=== PATIENT | male | born 1955 | race Caucasian/White ===

== ENCOUNTER → 2017-02-07 | Outpatient (CLI) | payer BC ==
[~2017-02-07] MED LIST: GLAUCOMA EYE GTTS; LRT5 PO
--- NOTE | 2017-02-07 15:04 | DIAGNOSTIC IMAGING REPORT ---
L-SPINE MIN 4 VIEWS ROUTINE HISTORY: 61 years-old Male PAIN IN RIGHT LEG acute right lower extremity pain without reported trauma. COMPARISON: None available. TECHNIQUE: 5 views of the lumbar spine. FINDINGS: 5 nonrib-bearing lumbar type vertebral segments are present. There is no acute fracture or dislocation identified. Multilevel endplate degenerative changes are noted with severe intervertebral disc space narrowing at L5-S1. There is lumbarization of S1. Multilevel facet arthropathy is noted, most pronounced in the lower lumbar levels, predominantly moderate. Moderate stool burden. IMPRESSION: 1. No acute lumbar spine fracture or subluxation. 2. Severe intervertebral disc space narrowing with moderate facet arthropathy at L5-S1. The above report was generated using voice recognition software. It may contain grammatical, syntax or spelling errors. Electronically signed by: Isauro Pugh M.D. 02/07/2017 3:03 PM Dictated Date/Time: 02/07/2017 3:01 PM
== END | disposition home or self-care (01) ==
LOC: C.RAD1850 14:32
PROVIDERS: ATTEND Family Medicine
DX: M79.604 Pain in right leg (principal)

== ENCOUNTER → 2017-10-17 | Outpatient (CLI) | payer BC | END | disposition home or self-care (01) | LOC: C.RDSM 15:35 | PROVIDERS: ATTEND Podiatrist | DX: M79.671 Pain in right foot (principal); M79.672 Pain in left foot ==

== ENCOUNTER 2023-05-18 15:46 | Observation (INO) ==
[2023-05-18] MEDS ORDERED: ONDANSETRON INJ 2 MG/ML 2 ML VIAL IV STA ×2 (16:12→18:09)
--- NOTE | 2023-05-18 16:14 | ED Triage Note ---
Date of Service May 18, 2023 Provider in Triage Author: Tanya Diaz History of Present Illness This patient was briefly evaluated while in triage. An abbreviated physical exam was performed. This patient is a 67-year-old Male who presents to the ED for evaluation of right flank pain with radiation into groin. Physical Exam CONSTITUTIONAL: in no acute pain or distress, resting comfortably SKIN: pink, warm, dry CARDIAC: regular rate and rhythm RESPIRATORY: in no respiratory distress, lungs clear to auscultation ABDOMEN: RLQ TTP MSK: 5/5 strength throughout NEURO: no neuro deficits, alert and oriented x 3 Initial orders for labs and / or imaging were placed and patient was placed in the waiting area until a bed is available. Please see further documentation for the full ED course.
[2023-05-18 17:28] LABS: Albumin Globulin Ratio 1.7 (0.9-2); Albumin Level 4.5 gm/dl (3.4-5.0); BUN Creatinine Ratio 19.3 (10-20); Bilirubin,Total 0.6 mg/dl (0.2-1.0); Calcium 9.8 mg/dl (8.6-10.3); Creatinine Clr Calc Pharmacy 95.6 ml/min; Est GFR (African American) 106.3 ml/min; Est GFR (Non-African American) 91.7 ml/min; Globulin 2.7 gm/dl (2.5-4.0); Potassium 3.8 mmol/L (3.5-5.1); Total Protein 7.2 gm/dl (6.0-8.3)
[2023-05-18 17:31] LABS: Basophils # (auto) 0.09 K/uL (0.00-0.20); Basophils % (auto) 0.7 %; Eosinophils # (auto) 0.25 K/uL (0.00-0.50); Hematocrit (blood only) 44.7 % (42.0-52.0); Hemoglobin 16.1 g/dl (14.0-18.0); Immature Granulocytes # (auto) 0.05 K/uL (0.01-0.20); Immature Granulocytes % (auto) 0.4 %; Lymphocytes # (auto) 3.72 K/uL (1.20-3.40); Lymphocytes % (auto) 29.9 %; Mean Corpuscular Hemoglobin 31.4 pg (25.0-34.0); Mean Corpuscular Volume 87.3 fL (80.0-100.0); Mean Platelet Volume 10.6 fL (9.4-12.4); Monocytes # (auto) 0.99 K/uL (0.11-0.59); Neutrophils # (auto) 7.34 K/uL (1.40-6.50); Platelet Count 238 K/uL (130-400); RDW Coefficient of Variation 12.4 % (11.5-14.5); RDW Standard Deviation 39.8 fL (36.4-46.3); Red Blood Count 5.12 M/uL (4.70-6.10); White Blood Count 12.44 K/ul (4.8-10.8)
[2023-05-18] MEDS ORDERED: MoRPHine SULFATE 4 MG/ML 1 ML CARP\\VIAL IV STA (18:09)
[2023-05-18] MEDS ORDERED: KETOROLAC TROMETHAMINE 15 MG/ML VIAL IV STA (18:09)
[2023-05-18] MEDS ORDERED: SODIUM CHLORIDE 0.9% 1,000 ML IV ONE (18:09)
--- NOTE | 2023-05-18 18:12 | Emergency Department Note ---
Impression & Plan Acute right flank pain, Hydronephrosis, Renal colic, Vomiting ED Provider Note NAME: COLTON GUTIERREZ AGE: 67 SEX: M : 1955 ARRIVES VIA: Walk-In INFORMANT: [Patient] ED PROVIDER(S): [Kehinde Chapin MD] CHIEF COMPLAINT: Abdominal pain HISTORY OF PRESENT ILLNESS: The patient is a 67-year-old male presents to the ER with about 3 hours of right-sided abdominal pain. The pain started in the right lower quadrant but now has moved to the right flank. He has had nausea and vomiting. No urinary complaints. No fever, chills, cough or congestion. The pain is colicky in nature. It is currently quite severe. No history of similar pain, no history of renal stones. PMHx/PSHx/Social Hx: See Below PHYSICAL EXAM: GENERAL: Patient is in moderate distress from pain. HEENT: No acute trauma, normocephalic atraumatic, mucous membranes moist, no nasal congestion. NECK: No stridor, no adenopathy, no meningismus, trachea is midline. LUNGS: Clear to auscultation bilaterally, no wheeze, no rhonchi, breath sounds equal. HEART: Without murmurs gallops or rubs, regular rate and rhythm. ABDOMEN: Soft, nontender, no peritonitis. EXTREMITIES: No cyanosis, full range of motion of all the joints without pain or difficulty. NEUROLOGIC: Oriented x 3, no acute motor or sensory deficits, no focal weakness. SKIN: No jaundice, no diaphoresis. Back: Right flank discomfort to percussion. DIFFERENTIAL DIAGNOSIS: Renal colic, appendicitis, hydronephrosis, diverticulitis, UTI or pyelonephritis, musculoskeletal pain, hernia, among others. EMERGENCY DEPARTMENT PROCEDURES: MEDICAL DECISION MAKING: There is a mild leukocytosis, this could be consistent with infection or just his pain and vomiting. There was a normal hemoglobin and platelet count. No renal failure or significant electrolyte abnormality. No concerning liver enzyme elevation. No evidence for pancreatitis. Urinalysis shows some hematuria, no findings of infection. Gastroccult of the vomitus was negative for blood. Abdominal and pelvis CT shows a right-sided proximal ureteral stone with hydronephrosis. On exam, the patient was quite uncomfortable. He was vomiting some reddish material. Patient received IV saline, 1 L. He was given oral Flomax. He was given IV Zofran, a second dose of IV Zofran was given. He received IV morphine for pain, IV Toradol for pain. He eventually received IV Dilaudid and then a second dose of IV Dilaudid. He was given IV Phenergan for nausea that was persisting. The patient has been here for over 4 hours. He has not improved to the point where he can be discharged. He will require a hospital stay for pain control, hydration, monitoring and a urology consult. I do think that the right ureteral stone is causing his symptoms. I spoke with the patient and case management, the on-call hospitalist was consulted. Prior/Outside records/notes reviewed: Imaging/x-ray results per my interpretation: Chronic Medical/Social conditions affecting care: Diabetes mellitus Care/Management discussed with: Case management, the on-call hospitalist. Level of care consideration(s): After review of the information above and other included data: --I believe the patient requires escalation of care to admission DISPOSITION: Admission with urology consult. Past Med/Surg History Medical History Tinea unguium Microalbuminuria Low back pain Glaucoma Surgical History H/O arthroscopy of shoulder S/P colonoscopy S/P skin biopsy S/P wisdom tooth extraction Family History Family/Other Skin cancer (melanoma) Hemochromatosis Social History Smoking Status: Never smoker Preferred Language: Welsh Feels Safe at Home: Yes Allergies Allergies Allergy/AdvReac Type Severity Reaction Status Date / Time No Known Allergies Allergy Mild NONE Verified 05/18/23 18:34 Home Meds Home Medications Medication Instructions Recorded Confirmed glucagon 1 mg solution for 1 mg subcut DIRECTED PRN 07/29/21 05/18/23 injection (Glucagon Emergency Kit) hypoglycemia insulin glargine 100 unit/mL (3 45 unit subcut QPM 07/29/21 05/18/23 mL) subcutaneous pen (Basaglar KwikPen U-100 Insulin) insulin regular human 100 unit/mL 1 sliding scale dose subcut 07/29/21 05/18/23 (3 mL) subcutaneous pen (Novolin R USEASDIRECTD FlexPen) timolol maleate 0.5 % eye drops 1 drp OPB DAILY 07/29/21 05/18/23 atorvastatin 10 mg tablet 10 mg PO DAILY 05/18/23 05/18/23 Results & Data (ED) Vital Signs Vital Signs - 24 hr 05/18/23 16:07 05/18/23 18:02 05/18/23 18:04 Temperature 36.7 C Temperature Source Temporal Artery Scan Pulse Rate 61 59 L Pulse Rate [Finger] 61 Pulse Rhythm [Finger] Regular Pulse Strength [Finger] Normal Respiratory Rate 20 18 Respiratory Effort / Characteristics Non-Labored Spontaneous Non-Labored Spontaneous Respiratory Depth Normal Normal Respiratory Pattern Regular Blood Pressure 177/96 H Blood Pressure [Right Arm] 176/94 H Blood Pressure Mean 123 Blood Pressure Mean [Right Arm] 121 Blood Pressure Position [Right Arm] Sitting Pulse Oximetry 97 98 Oxygen Delivery Method Room Air Room Air Oxygen Flow Rate Sepsis Recent Fever Within 48 Hours No Sepsis New/Unexplained Change in Mental Status No Sepsis Action Taken by Nursing No Action Required 05/18/23 18:58 05/18/23 20:46 Temperature Temperature Source Pulse Rate Pulse Rate [Finger] 67 67 Pulse Rhythm [Finger] Regular Regular Pulse Strength [Finger] Normal Normal Respiratory Rate 18 18 Respiratory Effort / Characteristics Non-Labored Spontaneous Non-Labored Spontaneous Respiratory Depth Normal Normal Respiratory Pattern Regular Blood Pressure Blood Pressure [Right Arm] 179/85 H 153/85 H Blood Pressure Mean Blood Pressure Mean [Right Arm] 116 107 Blood Pressure Position [Right Arm] Pulse Oximetry 98 99 Oxygen Delivery Method Room Air Nasal Cannula Oxygen Flow Rate 2 Sepsis Recent Fever Within 48 Hours Sepsis New/Unexplained Change in Mental Status Sepsis Action Taken by [facility] Medications Current Medication List: was personally reviewed by me Laboratory Data Attestation: I reviewed the patient's lab results. 05/18/23 16:56 05/18/23 16:56 Lab Results 05/18/23 05/18/23 05/18/23 Range/Units 16:56 18:20 18:29 WBC 12.44 H (4.8-10.8) K/ul RBC 5.12 (4.70-6.10) M/uL Hgb 16.1 (14.0-18.0) g/dl Hct 44.7 (42.0-52.0) % MCV 87.3 (80.0-100.0) fL MCH 31.4 (25.0-34.0) pg MCHC 36.0 (32.0-36.0) g/dL RDW Std Deviation 39.8 (36.4-46.3) fL RDW Coeff of Chloe 12.4 (11.5-14.5) % Plt Count 238 (130-400) K/uL MPV 10.6 (9.4-12.4) fL Immature Gran % (Auto) 0.4 % Neut % (Auto) 59.0 % Lymph % (Auto) 29.9 % Walker % (Auto) 8.0 % Eos % (Auto) 2.0 % Baso % (Auto) 0.7 % Neut # (Auto) 7.34 H (1.40-6.50) K/uL Lymph # (Auto) 3.72 H (1.20-3.40) K/uL Walker # (Auto) 0.99 H (0.11-0.59) K/uL Eos # (Auto) 0.25 (0.00-0.50) K/uL Baso # (Auto) 0.09 (0.00-0.20) K/uL Immature Gran # (Auto) 0.05 (0.01-0.20) K/uL Sodium 140 (136-145) mmol/L Potassium 3.8 (3.5-5.1) mmol/L Chloride 106 (98-107) mmol/L Carbon Dioxide 27 (21-32) mmol/L Anion Gap 7 (3-11) BUN 16 (6-23) mg/dl Creatinine 0.83 (0.6-1.4) mg/dl Est Cr Clr Drug Dosing 95.6 ml/min Est GFR ( Amer) 106.3 ml/min Est GFR (Non-Af Amer) 91.7 ml/min BUN/Creatinine Ratio 19.3 (10-20) Glucose 122 H (70-99(Fasting)) mg/dl Calcium 9.8 (8.6-10.3) mg/dl Total Bilirubin 0.6 (0.2-1.0) mg/dl AST 26 (13-39) U/L ALT 35 (7-52) U/L Alkaline Phosphatase 56 (34-104) U/L Total Protein 7.2 (6.0-8.3) gm/dl Albumin 4.5 (3.4-5.0) gm/dl Globulin 2.7 (2.5-4.0) gm/dl Albumin/Globulin Ratio 1.7 (0.9-2) Lipase 23 (11-82) U/L Urine Color Yellow Urine Appearance Clear (Clear) Urine pH 7.0 (4.5-7.5) Ur Specific [place] 1.015 (1.000-1.030) Urine Protein Negative (Negative) Urine Glucose (UA) Negative (Negative) Urine Ketones Negative (Negative) Urine Blood 2+ H (Negative) Urine Nitrite Negative (Negative) Urine Bilirubin Negative (Negative) Urine Urobilinogen Negative (Negative) Ur Leukocyte Esterase Negative (Negative) Urine WBC (Auto) 1-5 (0-5) /hpf Urine RBC (Auto) 0-4 (0-4) /hpf U Hyaline Cast (Auto) 1-5 (0-5) /lpf U Epithel Cells (Auto) 20-30 H (0-5) /lpf Urine Bacteria (Auto) Negative (Negative) Gastric Fluid pH 2 Gastric Occult Blood Negative (Negative) Administered Medications Lactated Ringer's (Lr) 1,000 mls @ 100 mls/hr IV .Q10H MATTHEW Stop: 05/19/23 16:59 Last Admin: 05/18/23 20:53 Dose: 100 mls/hr Documented By: AMY Discontinued Medications Hydromorphone HCl (Hydromorphone Inj 0.5 Mg/0.5 Ml Syr) 0.5 mg IV NOW STA Stop: 05/18/23 18:54 Last Admin: 05/18/23 18:57 Dose: 0.5 mg Documented By: AMY Hydromorphone HCl (Hydromorphone Inj 0.5 Mg/0.5 Ml Syr) 0.5 mg IV NOW STA Stop: 05/18/23 20:27 Last Admin: 05/18/23 20:43 Dose: 0.5 mg Documented By: AMY Sodium Chloride (Nss) 1,000 mls @ 999 mls/hr IV .Q1H1M ONE Stop: 05/18/23 19:09 Last Infusion: 05/18/23 19:39 Dose: Infused Documented By: Admin: 05/18/23 18:25 Dose: 999 mls/hr Documented By: KELLEY Promethazine HCl (Phenergan) 12.5 mg in 50.5 mls @ 202 mls/hr IV NOW STA Stop: 05/18/23 20:40 Last Admin: 05/18/23 20:44 Dose: 202 mls/hr Documented By: AMY Ketorolac Tromethamine (Ketorolac Tromethamine 15 Mg/Ml Vial) 15 mg IV NOW STA Stop: 05/18/23 18:10 Last Admin: 05/18/23 18:25 Dose: 15 mg Documented By: KELLEY Morphine Sulfate (Morphine Sulfate 4 Mg/Ml 1 Ml Carp\Vial) 4 mg IV NOW STA Stop: 05/18/23 18:10 Last Admin: 05/18/23 18:25 Dose: 4 mg Documented By: KELLEY Ondansetron HCl (Ondansetron Inj 2 Mg/Ml 2 Ml Vial) 4 mg IV NOW STA Stop: 05/18/23 16:13 Last Admin: 05/18/23 16:53 Dose: 4 mg Documented By: LAURA Ondansetron HCl (Ondansetron Inj 2 Mg/Ml 2 Ml Vial) 4 mg IV NOW STA Stop: 05/18/23 18:10 Last Admin: 05/18/23 18:25 Dose: 4 mg Documented By: KELLEY Tamsulosin HCl (Tamsulosin Hcl 0.4 Mg Cap) 0.4 mg PO NOW ONE Stop: 05/18/23 18:58 Last Admin: 05/18/23 19:02 Dose: 0.4 mg Documented By: AMY Imaging Data Radiologist's Impression: Abdomen/Pelvis CT 05/18/23 16:[address] WITHOUT CONTRAST CT DOSE: 1339.8 mGy.cm HISTORY: Right flank pain TECHNIQUE: Multiaxial CT images of the abdomen and pelvis were performed without contrast. A dose lowering technique was utilized adhering to the principles of ALARA. COMPARISON STUDY: None. FINDINGS: There are few subcentimeter nodules within the lung bases measuring 3 mm. No pneumoperitoneum. No pneumatosis. No acute fractures identified. Hepatic steatosis. The unenhanced gallbladder, pancreas, spleen, and adrenal glands are unremarkable. There is a punctate left renal stone. No right renal calculi. There is mild right perinephric edema. There is moderate hydronephrosis secondary to an obstructing 5 mm stone within the proximal right ureter on image 207. No retroperitoneal lymphadenopathy. Mild calcified plaque within the normal caliber abdominal aorta. Mild mesenteric panniculitis is noted. This is of doubtful clinical significance. No pelvic lymphadenopathy or pelvic free fluid. No bladder wall thickening. There is a small diverticulum in the anterior bladder. This may represent a urachal remnant. Suboptimal evaluation for bowel pathology due to the lack of intravenous and oral contrast. However, there is no definite bowel wall thickening or obstruction. Normal appendix. IMPRESSION: 1. A 5 mm obstructing stone within the proximal right ureter resulting in mild right hydronephrosis. 2. Left-sided nephrolithiasis. 3. No bowel wall thickening or obstruction. 4. Normal appendix. 5. A small anterior bladder diverticulum. This could represent a urachal remnant. 6. Hepatic steatosis. 7. A few subcentimeter nodules within the lung bases measuring up to 3 mm. Please refer to below summary of Fleischner criteria recommendations for follow- up of incidental CT nodules (Jaison Brannon, Guidelines for management of small pulmonary nodules detected on CT scans: A statement from the Fleischner Society, Radiology 237: [phone].) SOLID NODULES Solitary nodule size: <6 mm * Low risk patients: no follow-up needed * high risk patients: optional CT at 12 months Solitary nodule size: 6-8 mm * Low risk patients: follow-up at 6-12 months, then consider further follow-up at 18-24 months * high risk patients: initial follow-up CT at 6-12 months and then at 18-24 months if no change Solitary nodule size: >8 mm * either low or high risk patients - consider follow-up CT at 3 months, and/or CT-PET, and/or biopsy Multiple nodules size: <6 mm * Low risk patients: no routine follow-up * high risk patients: optional CT at 12 months Multiple nodules size: 6-8 mm * Low risk patients: follow-up at 3-6 months, then consider further follow-up at 18-24 months * high risk patients: follow-up at 3-6 months, then at 18-24 months if no change Multiple nodules size: >8 mm * Low risk patients: follow-up at 3-6 months, then consider further follow-up at 18-24 months * high risk patients: follow-up at 3-6 months, then at 18-24 months if no change Note: newly detected indeterminate nodule in persons 35 years of age or older. * Low risk patients: minimal or absent history of smoking and/or other known risk factors * high risk patients: history of smoking or of other known risk factors (e.g. first degree relative with lung cancer, or exposure to asbestos, radon, uranium) * if a nodule up to 8 mm is partly solid or is ground glass further follow-up is required after 24 months to exclude possible slow growing adenocarcinoma (JOSE) SUBSOLID NODULES Solitary pure ground-glass nodule * nodule size <6 mm - no CT follow-up required * nodule size >=6 mm - follow-up CT at 6-12 months, then every 2 years until 5 years Solitary part-solid nodule * nodule size <6 mm - no CT follow-up required * nodule size >=6 mm - follow-up CT at 3-6 months. If unchanged, and solid component remains <6 mm, then annual follow-up for 5 years Multiple subsolid nodules * nodule size <6 mm - follow-up CT at 3-6 months, consider further follow-up at 2 and 4 years if stable * nodule size >=6 mm - follow-up CT at 3-6 months, subsequent management based on the most suspicious nodule(s) ACT 112: Negative or not required by law. Electronically signed by: Vaibhav Gama M.D. 05/18/2023 6:27 PM Discharge Plan Visit Data Chief Complaint: Abdominal Pain Stated Complaint: ABD PAIN ED Provider: Kehinde Chapin Discharge Problem: Acute right flank pain, Hydronephrosis, Renal colic, Vomiting Patient Disposition: Admitted As Inpatient Condition: Fair Forms Stand Alone Forms: My [facility] Prescriptions Prescriptions: No Action Basaglar KwikPen U-100 Insulin 100 unit/mL (3 mL) insulin pen 45 unit subcut QPM Rx Instructions: use as directed subcut daily; Glucagon Emergency Kit (human) 1 mg recon soln 1 mg subcut DIRECTED PRN (Reason: hypoglycemia) Novolin R FlexPen 100 unit/mL (3 mL) insulin pen 1 sliding scale dose subcut USEASDIRECTD timolol maleate 0.5 % drops 1 drp OPB DAILY atorvastatin 10 mg tablet 10 mg PO DAILY Referrals Referrals: Colton Salas MD [Primary Care Provider] - Discharge Problem: Hydronephrosis Qualifiers: Hydronephrosis type: with renal calculous obstruction Qualified Code(s): N13.2 - Hydronephrosis with renal and ureteral calculous obstruction Vomiting Qualifiers: Vomiting type: unspecified Nausea presence: with nausea Qualified Code(s): R 11.2 - Nausea with vomiting, unspecified
--- NOTE | 2023-05-18 18:29 | CT Scan Report ---
ABDOMEN AND PELVIS CT WITHOUT CONTRAST CT DOSE: 1339.8 mGy.cm HISTORY: Right flank pain TECHNIQUE: Multiaxial CT images of the abdomen and pelvis were performed without contrast. A dose lo wering technique was utilized adhering to the principles of ALARA. COMPARISON STUDY: None. FINDINGS: There are few subcentimeter nodules within the lung bases measuring 3 mm. No pneumoperitone um. No pneumatosis. No acute fractures identified. Hepatic steatosis. The unenhanced gallbladder, swan creas, spleen, and adrenal glands are unremarkable. There is a punctate left renal stone. No right re nal calculi. There is mild right perinephric edema. There is moderate hydronephrosis secondary to an obstructing 5 mm stone within the proximal right ureter on image 207. No retroperitoneal lymphadenopa thy. Mild calcified plaque within the normal caliber abdominal aorta. Mild mesenteric panniculitis is noted. This is of doubtful clinical significance. No pelvic lymphadenopathy or pelvic free fluid. No bladder wall thickening. There is a small diverticulum in the anterior bladder. This may represent a urachal remnant. Suboptimal evaluation for bowel pathology due to the lack of intravenous and oral c ontrast. However, there is no definite bowel wall thickening or obstruction. Normal appendix. IMPRESSION: 1. A 5 mm obstructing stone within the proximal right ureter resulting in mild right hydronephrosis. 2. Left-sided nephrolithiasis. 3. No bowel wall thickening or obstruction. 4. Normal appendix. 5. A small anterior bladder diverticulum. This could represent a urachal remnant. 6. Hepatic steatosis. 7. A few subcentimeter nodules within the lung bases measuring up to 3 mm. Please refer to below summary of Fleischner criteria recommendations for follow-up of incidental CT n odules (Jaison Brannon, Guidelines for management of small pulmonary nodules detected on CT scans: A sta tement from the Fleischner Society, Radiology 237: [phone].) SOLID NODULES Solitary nodule size: <6 mm * Low risk patients: no follow-up needed * high risk patients: optional CT at 12 months Solitary nodule size: 6-8 mm * Low risk patients: follow-up at 6-12 months, then consider further follow-up at 18-24 months * high risk patients: initial follow-up CT at 6-12 months and then at 18-24 months if no change Solitary nodule size: >8 mm * either low or high risk patients - consider follow-up CT at 3 months, and/or CT-PET, and/or biopsy Multiple nodules size: <6 mm * Low risk patients: no routine follow-up * high risk patients: optional CT at 12 months Multiple nodules size: 6-8 mm * Low risk patients: follow-up at 3-6 months, then consider further follow-up at 18-24 months * high risk patients: follow-up at 3-6 months, then at 18-24 months if no change Multiple nodules size: >8 mm * Low risk patients: follow-up at 3-6 months, then consider further follow-up at 18-24 months * high risk patients: follow-up at 3-6 months, then at 18-24 months if no change Note: newly detected indeterminate nodule in persons 35 years of age or older. * Low risk patients: minimal or absent history of smoking and/or other known risk factors * high risk patients: history of smoking or of other known risk factors (e.g. first degree relative with lung cancer, or exposure to asbestos, radon, uranium) * if a nodule up to 8 mm is partly solid or is ground glass further follow-up is required after 24 m onths to exclude possible slow growing adenocarcinoma (JOSE) SUBSOLID NODULES Solitary pure ground-glass nodule * nodule size <6 mm - no CT follow-up required * nodule size >=6 mm - follow-up CT at 6-12 months, then every 2 years until 5 years Solitary part-solid nodule * nodule size <6 mm - no CT follow-up required * nodule size >=6 mm - follow-up CT at 3-6 months. If unchanged, and solid component remains <6 mm, then annual follow-up for 5 years Multiple subsolid nodules * nodule size <6 mm - follow-up CT at 3-6 months, consider further follow-up at 2 and 4 years if sta ble * nodule size >=6 mm - follow-up CT at 3-6 months, subsequent management based on the most suspiciou s nodule(s) ACT 112: Negative or not required by law. Electronically signed by: Vaibhav Gama M.D. 05/18/2023 6:27 PM
[2023-05-18 18:30] LABS: Gastric Occult Blood Negative (Negative); pH Gastric Fluid 2
[2023-05-18 18:44] LABS: Appearance Urine Clear (Clear); Bacteria Urine Automated Negative (Negative); Bilirubin Urine Negative (Negative); Blood Urine 2+ (Negative); Color Urine Yellow; Epithelial Cell Urine Auto 20-30 /lpf (0-5); Glucose Urine UA Negative (Negative); Ketones Urine Negative (Negative); Leukocyte Esterase Urine Negative (Negative); Nitrite Urine Negative (Negative); Protein Urine Negative (Negative); RBC Urine Automated 0-4 /hpf (0-4); Specific Gravity Urine 1.015 (1.000-1.030); Urobilinogen Urine Negative (Negative)
[2023-05-18] MEDS ORDERED: HYDROmorphone INJ 0.5 MG/0.5 ML SYR IV STA ×2 (18:53→20:26)
[2023-05-18] MEDS ORDERED: TAMSULOSIN HCL 0.4 MG CAP PO ONE (18:57)
[2023-05-18] MEDS ORDERED: PROMETHAZINE 12.5 MG/50.5 ML BAG IV STA (20:26)
--- NOTE | 2023-05-18 20:38 | History & Physical Report ---
Date of Service May 18, 2023 Assessment & Plan (1) Right nephrolithiasis: Plan: -Admit to med/tele on pulse oximetry -Currently hemodynamically stable, stable on RA when awake but drops into the high 80's when sleeping -CT of the abd/pelvis shows A 5 mm obstructing stone within the proximal right ureter resulting in mild right hydronephrosis -Renal function is stable, UA is non-infectious, negative BL CVA tenderness -Was given a total of 4 mg IV morphine and 1mg of Dilaudid prior to admission -Patient is currently fatigued due to multiple doses of narcotics in the ED; will hold additional narcotics for now until he is more awake -Start with PRN Tylenol for now -S/P one dose of flomax in the ED, will continue daily for now -Urine strainer ordered -Clear liquids until midnight then NPO in case of stent placement tomorrow -S/P 1L NSS in the ED, will give 1L LR overnight as he will be NPO -Urology consult placed -Hold chemical DVT PPX for now in case of stent placement tomorrow, BL CHARLOTTE's for now -Am CBC, BMP, Mag (2) Hypoxia: Plan: -Patient became hypoxic with Spo2 in the high 80's after receiving his second dose of IV dilaudid in the ED -Patient denies a hx of BEN -Likely due to oversedation as he is narcotic naive -No respiratory distress, lungs are CTA -Will obtain CXR to monitor for aspiration -PRN O2 to keep SpO2 at or above 95% -Incentive spirometry -PRN IV narcan for oversedation/respiratory depression (3) Vomiting: Plan: -Multiple episodes of nausea and vomiting on arrival -S/P one dose of zofran and Compazine in the ED -Nausea currently under control -Will continue with Prn zofran (4) Hydronephrosis: Plan: -Renal function stable -No signs of infection -Urology consult placed (5) Diabetes mellitus: Plan: -Will monitor BSG q6h as he will be NPO, goal is 110-140 -Normally takes 45 units HS, will adjust to 15 units BID for now to prevent hypoglycemia with NPO status at midnight -CF 50 q6h -Clears until midnight then NPO -Adjust regimen as needed Plan The patient was discussed wt Dr. Keating at the time of the admission History of Present Illness Chief Complaint: Right flank pain, abd pain, nausea Primary Care Provider: Colton Salas MD Colton is a 67 year old male with a PMH significant for DM, tremor, and chronic headaches who presented to the [facility] ED on 05/18 with complaints of right flank pain, abd pain, and nausea which began shortly after leaving work early this evening. He remained stable in the ED. Labs were significant for a leukocytosis of 12 with neutrophile predominance of 7.34, stable renal function, and UA without signs of infection. CT of the abd/pelvis wo con was read as "1. A 5 mm obstructing stone within the proximal right ureter resulting in mild right hydronephrosis. 2. Left-sided nephrolithiasis. 3. No bowel wall thickening or obstruction. 4. Normal appendix. 5. A small anterior bladder diverticulum. This could represent a urachal remnant. 6. Hepatic steatosis. 7. A few subcentimeter nodules within the lung bases measuring up to 3 mm.". Prior to admission the patient was given 1L NSS, 4 mg IV morphine, 15 mg IV toradol, 12.5 mg Compazine, 4 mg IV zofran, and 2 doses of 0.5 mg IV dilaudid. At the time of the admission the patient was sitting in bed in no acute distress with his sitting bedside, history was obtained from both. Prior to my arrival the patient's nurse placed him on 2L NC as his Spo2 fell to 88% on RA after receiving his last dose of Dilaudid. He states that he was in his normal state of health earlier today when leaving work. He was driving home when he started to develop acute onset of right flank/right lateral abd pain. He then had onset of diaphoresis and nausea. He pulled into the home depto parking lot but his symptoms persisted so he came to the ED. He denies a hx of previous kidney stones and denies recent urinary symptoms. He had multiple episodes of nausea and vomiting prior to and after ED arrival. His last episode appeared slightly red/purple. He states that he ate blueberries earlier in the day. His pain is currently well controlled. He is a full code and his would make medical decisions for him if he cannot make them himself. Please refer to Dr. Saeed's attestation for any changes to the treatment plan Allergies Allergy/AdvReac Type Severity Reaction Status Date / Time No Known Allergies Allergy Mild NONE Verified 05/18/23 18:34 Home Medications Medication Instructions Recorded Confirmed Type glucagon 1 mg solution for 1 mg subcut DIRECTED PRN 07/29/21 05/18/23 History injection (Glucagon Emergency Kit) hypoglycemia insulin glargine 100 unit/mL (3 45 unit subcut QPM 07/29/21 05/18/23 History mL) subcutaneous pen (Basaglar KwikPen U-100 Insulin) insulin regular human 100 unit/mL 1 sliding scale dose subcut 07/29/21 05/18/23 History (3 mL) subcutaneous pen (Novolin R USEASDIRECTD FlexPen) timolol maleate 0.5 % eye drops 1 drp OPB DAILY 07/29/21 05/18/23 History atorvastatin 10 mg tablet 10 mg PO DAILY 05/18/23 05/18/23 History Past Med/Surg History Medical History Tinea unguium Microalbuminuria Low back pain Glaucoma Surgical History H/O arthroscopy of shoulder S/P colonoscopy S/P skin biopsy S/P wisdom tooth extraction Family History Family/Other Skin cancer (melanoma) Hemochromatosis Social History Smoking Status: Never smoker Preferred Language: Slovenian Feels Safe at Home: Yes Physical Exam Physical Exam: Physical Exam: General: In no acute distress, fatigued but non-toxic appearing, stated age, well-nourished, HEENT: Normocephalic, atraumatic, no scleral icterus, pupils around round, symmetrical, and reactive to light, moist mucus membranes, trachea midline, no thyromegaly Chest/Pulm: No respiratory distress, symmetrical chest expansion, clear breath sounds throughout Cardiac: RRR, no murmurs noted Abdomen: Negative for ascites and bruising, normoactive bowel sounds, soft, mild tenderness in the RLQ without rebound tenderness : Negative CVA tenderness BL Musculoskeletal: Symmetrical and without signs of acute trauma, upper and lower extremities with full ROM, no atrophy, spasticity, or flaccidity Extremities: Radial, dorsalis pedis, and posterior tibial pulses are intact and symmetrical, no edema noted in the BL LE's Skin: Warm, dry, no rashes , lesions, or scars noted Neuro: Alert and oriented to person, place, month, year, and president, no focal defects, no tremors noted Psych: No acute distress, calm and cooperative during the exam Results & Data Results & Data Vital Signs (Past 12 Hours) Vital Signs Temp Pulse Pulse Resp BP BP Pulse Ox 05/18/23 18:58 67 18 179/85 H 98 05/18/23 18:04 59 L 05/18/23 18:02 61 18 176/94 H 98 05/18/23 16:07 36.7 C 61 20 177/96 H 97 O2 Del Method 05/18/23 18:58 Room Air 05/18/23 18:04 05/18/23 18:02 Room Air 05/18/23 16:07 Room Air Laboratory Results Abnormal lab results 05/18/23 05/18/23 Range/Units 16:56 18:29 WBC 12.44 H (4.8-10.8) K/ul Neut # (Auto) 7.34 H (1.40-6.50) K/uL Lymph # (Auto) 3.72 H (1.20-3.40) K/uL Rich # (Auto) 0.99 H (0.11-0.59) K/uL Glucose 122 H (70-99(Fasting)) mg/dl Urine Blood 2+ H (Negative) U Epithel Cells (Auto) 20-30 H (0-5) /lpf Diagnostic Findings Abdomen/Pelvis CT 05/18/23 16:[address] WITHOUT CONTRAST CT DOSE: 1339.8 mGy.cm HISTORY: Right flank pain TECHNIQUE: Multiaxial CT images of the abdomen and pelvis were performed without contrast. A dose lowering technique was utilized adhering to the principles of ALARA. COMPARISON STUDY: None. FINDINGS: There are few subcentimeter nodules within the lung bases measuring 3 mm. No pneumoperitoneum. No pneumatosis. No acute fractures identified. Hepatic steatosis. The unenhanced gallbladder, pancreas, spleen, and adrenal glands are unremarkable. There is a punctate left renal stone. No right renal calculi. There is mild right perinephric edema. There is moderate hydronephrosis secondary to an obstructing 5 mm stone within the proximal right ureter on image 207. No retroperitoneal lymphadenopathy. Mild calcified plaque within the normal caliber abdominal aorta. Mild mesenteric panniculitis is noted. This is of doubtful clinical significance. No pelvic lymphadenopathy or pelvic free fluid. No bladder wall thickening. There is a small diverticulum in the anterior bladder. This may represent a urachal remnant. Suboptimal evaluation for bowel pathology due to the lack of intravenous and oral contrast. However, there is no definite bowel wall thickening or obstruction. Normal appendix. IMPRESSION: 1. A 5 mm obstructing stone within the proximal right ureter resulting in mild right hydronephrosis. 2. Left-sided nephrolithiasis. 3. No bowel wall thickening or obstruction. 4. Normal appendix. 5. A small anterior bladder diverticulum. This could represent a urachal remnant. 6. Hepatic steatosis. 7. A few subcentimeter nodules within the lung bases measuring up to 3 mm. Please refer to below summary of Fleischner criteria recommendations for follow- up of incidental CT nodules (Jaison Brannon, Guidelines for management of small pulmonary nodules detected on CT scans: A statement from the Fleischner Society, Radiology 237: [phone].) SOLID NODULES Solitary nodule size: <6 mm * Low risk patients: no follow-up needed * high risk patients: optional CT at 12 months Solitary nodule size: 6-8 mm * Low risk patients: follow-up at 6-12 months, then consider further follow-up at 18-24 months * high risk patients: initial follow-up CT at 6-12 months and then at 18-24 months if no change Solitary nodule size: >8 mm * either low or high risk patients - consider follow-up CT at 3 months, and/or CT-PET, and/or biopsy Multiple nodules size: <6 mm * Low risk patients: no routine follow-up * high risk patients: optional CT at 12 months Multiple nodules size: 6-8 mm * Low risk patients: follow-up at 3-6 months, then consider further follow-up at 18-24 months * high risk patients: follow-up at 3-6 months, then at 18-24 months if no change Multiple nodules size: >8 mm * Low risk patients: follow-up at 3-6 months, then consider further follow-up at 18-24 months * high risk patients: follow-up at 3-6 months, then at 18-24 months if no change Note: newly detected indeterminate nodule in persons 35 years of age or older. * Low risk patients: minimal or absent history of smoking and/or other known risk factors * high risk patients: history of smoking or of other known risk factors (e.g. first degree relative with lung cancer, or exposure to asbestos, radon, uranium) * if a nodule up to 8 mm is partly solid or is ground glass further follow-up is required after 24 months to exclude possible slow growing adenocarcinoma (JOSE) SUBSOLID NODULES Solitary pure ground-glass nodule * nodule size <6 mm - no CT follow-up required * nodule size >=6 mm - follow-up CT at 6-12 months, then every 2 years until 5 years Solitary part-solid nodule * nodule size <6 mm - no CT follow-up required * nodule size >=6 mm - follow-up CT at 3-6 months. If unchanged, and solid component remains <6 mm, then annual follow-up for 5 years Multiple subsolid nodules * nodule size <6 mm - follow-up CT at 3-6 months, consider further follow-up at 2 and 4 years if stable * nodule size >=6 mm - follow-up CT at 3-6 months, subsequent management based on the most suspicious nodule(s) ACT 112: Negative or not required by law. Electronically signed by: Vaibhav Gama M.D. 05/18/2023 6:27 PM Code Status & VTE Plan Code Status Full code VTE Prophylaxis Plan VTE Prophylaxis will be ordered: Yes Supervising Physician Co-Signing Physician Notes I have personally seen, evaluated and examined the patient. I have also personally discussed the management of the patient with the ANITA and I agree with the exam findings documented in the history and physical examination and the documented assessment and plan unless otherwise stated below. HEENT: Normocephalic atraumatic pupils are equal round and reactive to light bilaterally. No scleral icterus no conjunctival injection external auditory canals are patent septum is in the midline nose is without discharge oral mucosa is pink and moist without lesion. NECK: Supple no rigidity no lymphadenopathy no thyromegaly no carotid bruits no JVD no masses. HEART: Regular rate and rhythm I do not appreciate any ectopy or rub. No murmur. LUNGS: Clear to auscultation bilaterally and anteriorly with no evidence of adventitious sounds/wheezes rales or rhonchi. ABDOMEN: Soft nontender, no rebound, no peritoneal signs, positive bowel sounds, no appreciable organomegaly. EXTREMITIES: Intact, no peripheral cyanosis, clubbing or edema. Strength is 5 out of 5 in extremities x4, no pathological reflexes. NEUROLOGICAL: He is mildly somnolent I had to wake him up once during the exam but he is alert and oriented times 3 when awake and cranial nerves II through XII are grossly intact with no focal deficit elicited upon examination. No tremor. Assessment/plan: As described above. N.p.o. after midnight Flomax IV fluids strain urine consult urology for possible stent placement pending clinical course. At this time we will hold off on IV antibiotic therapy given the fact the patient has no fever his urine does not reflect infection at this time however low threshold if the patient does spike a fever or leukocytosis worsens to begin empiric antibiotics therapy PG Care Time/CCT Total # of Minutes Spent Total Time Spent with Patient: Total time spent is greater than 50% in coordination of care (as documented) at patient's floor/unit and/or counseling patient: Coding [place] [address] INT INP/OBS CARE 3/75MIN Patient Type Established Medical Decision Making Moderate Complexity Diagnoses Right nephrolithiasis N20.0 Hypoxia R09.02 Vomiting R11.2 Nausea presence: with nausea Vomiting type: unspecified Hydronephrosis N13.2 Hydronephrosis type: with renal calculous obstruction Diabetes mellitus E11.9 (3) Vomiting Nausea presence: with nausea Vomiting type: unspecified Qualified Code(s): R11.2 - Nausea with vomiting, unspecified (4) Hydronephrosis Hydronephrosis type: with renal calculous obstruction Qualified Code(s): N13.2 - Hydronephrosis with renal and ureteral calculous obstruction
[2023-05-18] MEDS ORDERED: NALOXONE HCL 0.4 MG/1 ML VIAL/CARP IV PRN (20:46)
[2023-05-18] MEDS: LACTATED RINGER'S 1,000 ML IV SCH (20:53)
[2023-05-18] MEDS ORDERED: GLUCOSE 40% GEL 15 GM TUBE PO PRN (21:06)
[2023-05-18] MEDS ORDERED: CARBOHYDRATES FOR HYPOGLYCEMIA PO PRN (21:06)
[2023-05-18] MEDS ORDERED: GLUCAGON FOR INJ 1 MG VIAL SQ PRN (21:06)
[2023-05-18] MEDS ORDERED: GLUCOSE 10 TAB/TUBE PO PRN (21:06)
[2023-05-18] MEDS ORDERED: DEXTROSE 50% 50 ML SYRINGE IV PRN (21:06)
[2023-05-18] MEDS ORDERED: ACETAMINOPHEN 325 MG TAB PO PRN (21:08)
[2023-05-18] MEDS: INSULIN ASPART PER UNIT CHARGE SC SCH (21:55)
--- NOTE | 2023-05-18 21:58 | XRay Report ---
SINGLE VIEW CHEST CLINICAL HISTORY: Hypoxia FINDINGS: 2 AP, portable, upright chest radiographs are compared to study dated 01/28/2022. Correlatio n is made with today's abdominal CT. The cardiomediastinal silhouette is unremarkable noting atherosc lerotic calcification of the thoracic aorta. There is bibasilar atelectasis. No airspace consolidatio n or large pleural effusion is identified. No pneumothorax is seen. The skeletal structures appear os teopenic. The bony thorax is grossly intact. IMPRESSION: Bibasilar atelectasis with no active disease in the chest. ACT 112: Negative or not required by law. Electronically signed by: Kehinde Beverly M.D. 05/18/2023 9:56 PM
--- NOTE | 2023-05-19 02:03 | Urology Consultation ---
Date of Consultation May 19, 2023 Assessment & Plan (1) Renal colic: The patient has been admitted on the hospitalist service. From urology perspective we recommend the following: Provide analgesics Provide antiemetics Wrote IV fluid for hydration Strain all urine Would recommend keeping the patient n.p.o. for the present time. The patient be evaluated by Dr. Limon later this morning and a determination will be made if patient will require any cystoscopic intervention. At the present time the patient is afebrile and hemodynamically stable. He does not have evidence of acute kidney injury and his pain is well-controlled and therefore I do not feel an emergent urologic procedure is required at this time. Attending note: Patient independently assessed, examined, interviewed, and evaluated. Agree with note as above. Patient's vitals and labs were all reviewed. Pertine nt values in the HPI and plan section. Imaging was reviewed interpreted by myself. Agree with read. Vitals were reviewed. Discussed findings extensively with patient and family. Reviewed with nurse practitioner as well as consulting physicians/team. Patient's complicated medical and surgical history was reviewed and summarized above. Patient's surgical, medical, social, and family history were all reviewed with pertinent values as above. Discussed patient's current diagnosis as well as concerns and issues. Reviewed different options moving forward. Discussed potential risks and benefits as well as possible options and concerns. Reviewed potential surgical options and interventions. Discussed potential issues and concerns related to intervention. Risk and benefits were discussed extensively with patient and any available family. Discussed potential risks related to anesthesia. Discussed risks of bleeding infection and injury. Patient is currently afebrile. Is having some mild hypertension. No considerable tachycardia. He is oxygenating 91% on room air. Patient's labs have all been reviewed. White count is 12.29. Creatinine 1.0. No considerable ALEJANDRA or major change. Hemoglobin is stable. At 15.1. Patient's imaging was reviewed interpreted by myself. Has obstructing stone proximately 5 mm in the proximal ureter. Patient had considerable relief of pain overnight but this morning developed increasing pain and discomfort. Did discuss the stone moves down the ureter may be getting held up at the crossing of the iliac vessels or possibly down in the UVJ region. Discussed on passage rates. Discussed concerns and issues. Discussed potential problems and concerns. Discussed options for conservative measure and maximum expulsion medical therapy and symptom controlled. Discussed ESWL. Discussed Ureteroscopy with extraction and/or laser lithotripsy. Risks and benefits were discussed. Stone free rates were also discussed as well as possibility of multiple procedures. Ureteral stents were discussed as well as post-operative issues and pain management. All questions were answered. Patient is currently afebrile. He has been dealing with some considerable pain issues but has been coming and going. Does have medications on board for better control. Patient has never had a stone before. Does not have considerable family history. No considerable ALEJANDRA or significant signs of major obstruction. Discussed different options. Will plan for observation with maximum expulsion therapy and observation with supportive care. Will plan for IV hydration with medications for control of pain discomfort as well as to relax the ureter and to decrease discomfort and inflammation. If patient develops severe fevers or if considerable acute kidney injury or other major obstruction begins to occur or if pain becomes uncontrollable and severe may need to consider possible intervention. Patient is able to pass stone spontaneously should be sent for analysis. Will otherwise plan to continue to observe with plans for possible intervention if patient drastically worsens or if major issues develop. Patient's complicated medical and surgical history was reviewed and summarized above all imaging was reviewed interpreted by myself. Agree with the note as written by the ANITA. Will plan to continue to monitor. History of Present Illness Reason for Consultation: Nephrolithiasis Attending Physician: Quoc Keating, PhD, DO History of Present Illness Is a 67-year-old male who presented to the emergency department [facility] yesterday secondary to right-sided flank pain. The patient denies any fevers, shakes, or chills. He denies any dysuria or hematuria. He did have some associated nausea and vomiting. He does not report any modifying factors to his pain but notes that it originates in the right flank with some radiation to the front of his abdomen. He notes he has never had issues with kidney stones in the past. Since arrival to the hospital patient has had labs and imaging which independent reviewed. Patient had a CT scan of the abdomen pelvis which demonstrated a 5 mm obstructing kidney stone in the proximal right ureter resulting in hydronephrosis. There was some left-sided nephrolithiasis. Chest x-ray showed no evidence of pneumonia. Labs include a CBC her white blood cell count was elevated 12.4. Hemoglobin and hematocrit along with the platelet count were normal. Chemistry profile showed sodium and potassium along with the BUN and creatinine were normal. Urinalysis did show 2+ blood but was not indicative of infection. At the time of my interview the patient's pain had resolved and he was resting comfortably in bed. Allergies Allergy/AdvReac Type Severity Reaction Status Date / Time No Known Allergies Allergy Mild NONE Verified 05/18/23 18:34 Home Medications Medication Instructions Recorded Confirmed Type glucagon 1 mg solution for 1 mg subcut DIRECTED PRN 07/29/21 05/18/23 History injection (Glucagon Emergency Kit) hypoglycemia insulin glargine 100 unit/mL (3 45 unit subcut QPM 07/29/21 05/18/23 History mL) subcutaneous pen (Basaglar KwikPen U-100 Insulin) insulin regular human 100 unit/mL 1 sliding scale dose subcut 07/29/21 05/18/23 History (3 mL) subcutaneous pen (Novolin R USEASDIRECTD FlexPen) timolol maleate 0.5 % eye drops 1 drp OPB DAILY 07/29/21 05/18/23 History atorvastatin 10 mg tablet 10 mg PO DAILY 05/18/23 05/18/23 History Patient History Medical History Tinea unguium Microalbuminuria Low back pain Glaucoma Surgical History H/O arthroscopy of shoulder S/P colonoscopy S/P skin biopsy S/P wisdom tooth extraction Family History Family/Other Skin cancer (melanoma) Hemochromatosis Social History Smoking Status: Never smoker Hx Alcohol Use: No Hx Substance Use: No Preferred Language: Moroccan Communication Ability: Effective Hr Clerk Required: No Beliefs That Will Affect Care: None Current Living Situation: Spouse Other Information That Helps Us Care for You: No Feels Safe at Home: Yes Safety Concerns: Feels Safe At This Time Assistive Devices: None Review of Systems Constitutional: no fever and no chills Ear, Nose, Mouth, Throat: no hearing loss Respiratory: no dyspnea Cardiovascular: no chest pain Gastrointestinal: + abdominal pain (Radiating from right f lank) Genitourinary: + as per Subjective / HPI Musculoskeletal: + back pain (Right flank) Integumentary: no rash Neurologic: no localized weakness Physical Exam Constitutional: WD/WN, vitals as above Eyes: no conjunctival abnormality ENMT: Ears: no hearing impairment Neck: trachea midline Respiratory: normal respiratory effort; no respiratory distress and no labored breathing Cardiovascular: Rate/Rhythm: regular rate and regular rhythm Gastrointestinal (Abdomen): Soft, nondistended, nonrigid, nontender to palpation at the time of my exam. There is no rebound tenderness or guarding Musculoskeletal: No calf tenderness Skin: no rashes Neurologic: moves all extremities Psychiatric: A+Ox3, euthymic affect Genitourinary: No CVA tenderness with percussion bilaterally at the time of my exam Results & Data Vital Signs (Past 12 Hours) Vital Signs Temp Pulse Pulse Resp BP BP Pulse Ox 05/19/23 00:30 68 17 151/77 H 94 05/19/23 00:00 71 16 118/70 94 05/18/23 23:30 70 16 118/68 92 05/18/23 22:30 67 16 145/78 H 99 05/18/23 22:03 67 05/18/23 21:54 66 99 05/18/23 20:46 67 18 153/85 H 99 05/18/23 18:58 67 18 179/85 H 98 05/18/23 18:04 59 L 05/18/23 18:02 61 18 176/94 H 98 05/18/23 16:07 36.7 C 61 20 177/96 H 97 O2 Del Method O2 Flow Rate 05/19/23 00:30 Room Air 05/19/23 00:00 Room Air 05/18/23 23:30 Room Air 05/18/23 22:30 Room Air 05/18/23 22:03 05/18/23 21:54 Room Air 05/18/23 20:46 Nasal Cannula 2 05/18/23 18:58 Room Air 05/18/23 18:04 05/18/23 18:02 Room Air 05/18/23 16:07 Room Air PG Care Time/CCT Total # of Minutes Spent Total Time Spent with Patient: Total time spent is greater than 50% in coordination of care (as documented) at patient's floor/unit and/or counseling patient: Coding Level of Care Code 28810 INT INP/OBS CARE 375MIN Diagnoses Renal colic N23
--- OUTSIDE RECORDS SUMMARY | 2023-05-19 03:35 | External Medical Summary | Continuity of Care Document ---
Author Name Unknown Organization [facility] [address] Address [address] [facility], [place] [id number] Care Team Providers Care Utility Supervisor [employer] Name Role Phone Colton Salas Primary Care Physician [phone] Encounter [facility] [id number] Date(s): 05/09/23 - 05/09/23 [facility] [address] [facility] [address], [facility] [address] [place], [place] [phone] Encounter Diagnosis Type 2 diabetes mellitus without complications(Final) - Encounter for screening for malignant neoplasm of prostate(Final) - Unspecified symptoms and signs involving the genitourinary system(Final) - Encounter for therapeutic drug level monitoring(Final) - Other fecal abnormalities(Final) - Discharge Disposition: Home or Self Care Attending Physician: MD Salas Joseph P Referring Physician: MD Salas Joseph P Allergies, Adverse Reactions, Alerts No Known Allergies Immunizations Given and Recorded Vaccine Date Status Refusal Reason influenza virus vaccine, inactivated 05/10/23 Give n influenza virus vaccine, inactivated 03/16/21 Bigg rded influenza virus vaccine, inactivated 05/21/18 Give n pneumococcal 20-valent conjugate vaccine 02/08/22 Given zoster vaccine, inactivated 1 07/30/20 Recorded tetanus/diphtheria/pertuss, acel (Tdap) 2 02/14/16 Recorded tetanus/diphtheria/pertuss, acel (Tdap) 3 05/03/11 Recorded 1Result Comment: [facility] (Irina Martínez) 2Result Comment: 2019-02-21: Historical information-source unspecified 3Result Comment: 2019-02-21: Historical information-source unspecified Medications Accu-Chek Active Test Strips Start: 05/11/22 13:33:00 EST, See Instructions, Disp# 100 strip, as directed, other Start Date: 05/11/22 Status: Ordered albuterol CFC free 90 mcg/inh MDI Start: 02/08/22 13:17:00 EDT, 2 puff, inhaled, qid, Disp# 1 each, Refills: 3, PRN: as needed for wheezing, Pharmacy: [facility]/pharmacy #[id number] Start Date: 02/08/22 Status: Ordered Alpha Lipoic Acid 600 mg oral capsule Start: 05/11/22 13:24:00 EST, 1 cap, PO, Daily, Disp# 60 cap, other Start Date: 05/11/22 Status: Ordered atorvastatin 10 mg oral tablet Start: 01/15/23 16:38:00 EDT, See Instructions, Disp# 90 tab, Refills: 3, TAKE 1 TABLET BY MOUTH EVERY DAY, Pharmacy: [facility] STORE [id number] Start Date: 01/15/23 Status: Ordered BD 0.3 mL Ultra-Fine II Short Insulin Syringe 31G x 5/16" Start: 02/22/17 16:31:00, See Instructions, Disp# 100 unit, One with pen daily, Pharmacy: [id number] Start Date: 02/22/17 Status: Ordered BD needle Ultra-Fine III Mini Pen 31G x 5mm Start: 05/11/22 13:34:00 EST, See Instructions, Disp# 300 each, Refills: 3, Use as directed with insulin. Max ____/day. Use new pen needle with each injection., Pharmacy: [facility]/pharmacy #[id number] Start Date: 05/11/22 Status: Ordered cyanocobalamin 2500 mcg sublingual tablet Start: 08/29/22 10:37:00 EDT, 1 tab, SL, Daily, Disp# 90 tab, Refills: 0, Pharmacy: [facility]/pharmacy #[id number] Start Date: 08/29/22 Stop Date: 11/27/22 Status: Ordered FreeStyle Shelly 2 - 14 day reader Start: 09/01/22 8:57:00 EDT, See Instructions, Disp# 1 each, Refills: 1, Use with Freestyle Shelly 14 Day sensors, Pharmacy: [facility]/pharmacy #[id number] Start Date: 09/01/22 Status: Ordered FreeStyle Shelly 2 - 14 day sensor Start: 08/15/22 13:27:00 EDT, See Instructions, Disp# 6 each, Refills: 4, One sensor every two weeks, Pharmacy: [facility]/pharmacy #[id number] Start Date: 08/15/22 Status: Ordered Glucagon Emergency Kit for Low Blood Sugar 1 mg injection Start: 06/26/17 15:32:00, See Instructions, Disp# 3 kit, Refills: 2, For hypoglycemia as directed.,Pharmacy: [facility]/pharmacy #[id number] Start Date: 06/26/17 Status: Ordered lancets Start: 02/22/17 16:32:00, See Instructions, Disp# 100 unit, Refills: 3, Test four times daily, Pharmacy: [facility] [id number] [facility] Start Date: 02/22/17 Status: Ordered Lantus Solostar Pen 100 units/mL subcutaneous solution Start: 05/30/22 15:48:00 EST, 45 unit =, subQ, Daily, Disp# 15 mL, Refills: 5, Pharmacy: [facility]/pharmacy #[id number] Start Date: 05/30/22 Status: Ordered NovoLOG FlexPen 100 units/mL injectable solution Start: 08/02/22 14:05:00 EST, See Instructions, Disp# 60 unknown unit, Refills: 5, INJECT 20UNITS UNDER THE SKIN BEFORE MEALS 3 TIMES A DAY, Pharmacy: [id number] Start Date: 08/02/22 Status: Ordered rosuvastatin 5 mg oral tablet Start: 05/11/22 13:39:00 EST, 1 tab, PO, Daily, Disp# 90 tab, other Start Date: 05/11/22 Status: Ordered Sutab oral tablet Start: 05/03/22 8:07:00 EST, See Instructions, Disp# 24 tab, Refills: 0, Follow instructions as given to [facility] by [facility], Note to Pharmacy: COUPON CODE: BIN: [id number]; PCN: [id number]; GROUP: [id number]; I.D. [phone], Pharmacy: [facility]/pharmacy #[id number] Start Date: 05/03/22 Status: Ordered timolol maleate 0.5% ophthalmic solution Start: 11/26/15 14:40:00, 1 drop, both eyes, Daily Start Date: 11/26/15 Status: Ordered Problem List Condition Confirmation Course Effective Dates Status H ealth Status Informant Atopic dermatitis Confirmed Active Chronic daily headache Confirmed Active FH: hemochromatosis Confirmed Active Family history of skin cancer 1 Confirmed Active Bilateral foot pain Confirmed Active Glaucoma Confirmed Active S/P shoulder surgery Confirmed Active Microalbuminuria Confirmed Active Mixed hyperlipidemia Confirmed Active Neuropathy Confirmed Active Tinea unguium Confirmed Active Stress due to family tension Confirmed Active Tremor Confirmed Active Insulin-treated type 2 diabetes mellitus Confirmed Active 1mother Procedures Procedure Date Related Diagnosis Body Site Status CT of brain 1 11/03/[address] of cervical spine 2 11/03/22 Co mpleted Colonoscopy 3, 4 05/10/22 Complete d EMG finding 5 09/21/21 Completed Ankle X-ray 6 02/08/21 Completed Colonoscopy 7, 8, 9 06/01/20 Compl eted Shave biopsy and cauterization of skin 05/18/20 Completed Surgery 10 05/04/20 Completed Excision 01/16/19 Completed MRI of brain without contrast 11 10/31/18 Completed Diagnostic arthroscopy of sh oulder with debridement 12 11/15/17 Completed MRI of left shoulder 13 10/22/17 C ompleted Spine X-ray 14 02/07/17 Completed Excision 1988 Completed [place] tooth 1977 Completed 1IMPRESSION: 1. There is no hemorrhage, mass effect, or evidence of acute territorial ischemia by CT criteria. 2. Posterior scalp injury. 2IMPRESSION: Degenerative changes without evidence of acute bony injury. 3Impression - ONe 4mm polyp was found in the transverse colon, removed with a cold snare. Resected and retrieved. The examination was otherwise normal. 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 There was no myopathy or lumbosacral radicuopathy present. The polyneuropathy changes are non-specific and may be seen with diabetes or a mild hereditary sensory and motor polyneuropathy. The changes are not classic for HMSN-1 61.subtle acute nondisplaced fracture of the dorsal talar neck 2. subcentimeter bone fragments along the lateral margin of the anterior process of the anterior process of the calcaneus are suspicious for acutre fracture fragments. 7Repeat colonoscopy 2 years. 8Pathology report: 1. 7mmg splenic flexure: tubulovilious adenoma. 2. 2mm rectum polyp: hyperplasticpolyp. 3. 7mm proximal transverse colon polyp: tubulovilious adenoma. 4. 4 and 5mm sigmoid colon polyps: fragments of hyperplastic polyp. 9-One 7 mm polyp at the splenic flexure removed. Resected. -One 2 mm polyp in the rectum, removed. -One 7 mm polyp in the proximal transverse colon, removed. -Two 4 to 5 mm polyps in the sigmoid colon, removed. 10tooth implant 11Impression: No acute intracranial process. Unremarkable noncontrast MRI brain. 12Tolerated the procedure well. 131. Mild fraying of the undersurface of the supraspinatus tendon associated with mild tendinosis. Nofrank tear. Remaining rotator cuff tendons are intact. 2. Degenerative signal in the labrum. Somewhat globular appearance to the anterior labrum. This maybe sequela of a previous tear in the healing phase. It could be injury from prior anterior dislocation. No acute tear identified. 3. Thickening and edema in the inferior glenohumeral ligament and axillary recess of the capsule concerning for capsultitis. 14No acute lumbar spine fracture or subluxation. Severe intervertebral disc space narrowing with moderate facet arthropathy at L5-S1. 15growth on neck -benign Results Laboratory List Name Date Comprehensive Metabolic Panel (COMP META B PANEL) 05/09/23 Hemoglobin A1C (HEMOGLOBIN, A1C) 05/09/23 Microalbumin, Urine, Random (MICROALBUMI N, RD UR) 05/09/23 PSA Reflex to FREE PSA (PSA REFLEX TO FR EEPSA) 05/09/23 Most recent to oldest [Reference Range]: 1 eGFR CKD-EPI [>60 mL/min/1.73 m2] >90 mL /min/1.73 m2 1 (05/09/23 7:41 AM) Estimated Average Glucose 151 mg/dL 2 (05/09/23 7:41 AM) PSA Screen [<4.51 ng/mL] 0.76 ng/mL (05/09/23 7:41 AM) Estimated CrCl 106.61 mL/min (05/09/23 8:13 AM) Micro Alb (u) [<2.00 mg/dL] 1.22 mg/dL (05/09/23 7:41 AM) Anion Gap [5-14 mmol/L] 9 mmol/L (05/09/23 7:41 AM) Alb [3.5-5.0 g/dL] 4.3 g/dL (05/09/23 7:41 AM) Alk Phos [38-126 unit/L] 51 unit/L (05/09/23 7:41 AM) ALT [<50 unit/L] 47 unit/L (05/09/23 7:41 AM) AST [15-46 unit/L] 32 unit/L (05/09/23 7:41 AM) BUN [7-20 mg/dL] 16 mg/dL (05/09/23 7:41 AM) Ca [8.4-10.2 mg/dL] 9.5 mg/dL (05/09/23 7:41 AM) Cl- [96-107 mmol/L] 109 mmol/L *HI* (05/09/23 7:41 AM) HCO3 [22-30 mmol/L] 25 mmol/L (05/09/23 7:41 AM) Cret [0.70-1.30 mg/dL] 0.74 mg/dL (05/09/23 7:41 AM) HbA1c [4.0-6.0 %] 6.9 % *HI* (05/09/23 7:41 AM) Glu [74-106 mg/dL] 167 mg/dL *HI* (05/09/23 7:41 AM) K [3.5-5.1 mmol/L] 3.8 mmol/L (05/09/23 7:41 AM) Micro Alb Ratio [<20 ug/mg cret] 10 ug/m g cret (05/09/23 7:41 AM) Na [137-145 mmol/L] 143 mmol/L (05/09/23 7:41 AM) T Bili [0.2-1.3 mg/dL] 0.7 mg/dL (05/09/23 7:41 AM) Prot [6.3-8.2 g/dL] 7.4 g/dL (05/09/23 7:41 AM) Creat (u) 119.81 mg/dL 3 (05/09/23 7:41 AM) 1Result Comment: Testing Performed By: Dept of Pathology [facility] [address], [address] [place] [address] 2Result Comment: Testing Performed By: Dept of Pathology [facility] [address], [address] [place] [address] 3Result Comment: Reference Range for Random Urine Not Established. Social History Social History Type Response Smoking Status Never smoked cigaret nara Sex Male Patient Care team information Care Team Personnel Name: DEON Posey Janet Griffith Position: Nurse Pract - Pulmonary Med Member Role: Lifetime Relationship Address: Address: [address] [place] [id number] Name: JONO Barrera Christina L Position: Physician - Podiatry Member Role: Lifetime Relationship Address: Address: [address] [facility] [address] [place] [address] Name: MD Josue, Colton De La O Position: Physician - Family Med Member Role: Primary Care Provider Address: Address: [address] [facility] [address] [place] [address] Care Team Related Persons Name: LORNE GUTIERREZ Address: home [address] [place] [phone] Name: LORNE GUTIERREZ Address: [facility] Address: home [address] [place] [phone]
--- OUTSIDE RECORDS SUMMARY | 2023-05-19 03:35 | External Medical Summary | Continuity of Care Document ---
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 Name Role Phone Colton Salas Primary Care Physician [phone] Encounter [facility] [id number] Date(s): 02/08/23 - 02/08/23 [facility] [address] [address] [place] [phone] Encounter Diagnosis Insulin-treated type 2 diabetes mellitus(Discharge Diagnosis) - 02/08/23 Neuropathy(Discharge Diagnosis) - 02/08/23 Mixed hyperlipidemia(Discharge Diagnosis) - 02/08/23 Loose stools(Discharge Diagnosis) - 02/08/23 Glaucoma(Discharge Diagnosis) - 02/08/23 Elevated blood pressure reading(Discharge Diagnosis) - 02/08/23 Discharge Disposition: Home or Self Care Attending Physician: MD Salas Joseph P Allergies, Adverse Reactions, Alerts No Known Allergies Assessment and Plan Extracted from: Title:Office Visit Note Author:MD Salas Jos eph P Date:02/08/23 1.Insulin-treated type 2 d iabetes mellitus chronic, stable continue insulin 2.Neuropathy chronic, stable 3.Mixed hyperlipidemia Chronic, stable, continue atorvastatin 10 mg 4.Glaucoma Sees Dr. Jones 5.Elevated blood pressure reading BP on my check 170/100 mm Hg - he will check at home. He will call if over 150/90 mm hg. I have personally spent35 minutes performing kmbn-uq-oeac and jzt-jtyr-uv-face activities on this date of service. My activities included reviewing past records prior ot the encounter, reviewed past lab results, with extensive counseling. Immunizations Given and Recorded Vaccine Date Status Refusal Reason pneumococcal 20-valent conjugate vaccine 02/08/22 Given influenza virus vaccine, inactivated 03/16/21 Bigg rded influenza virus vaccine, inactivated 05/21/18 Give n zoster vaccine, inactivated 1 07/30/20 Recorded tetanus/diphtheria/pertuss, acel (Tdap) 2 02/14/16 Recorded tetanus/diphtheria/pertuss, acel (Tdap) 3 05/03/11 Recorded 1Result Comment: [facility] Pharmacy (Irina Martínez) 2Result Comment: 2019-02-21: Historical information-source unspecified 3Result Comment: 2019-02-21: Historical information-source unspecified Medications Accu-Chek Active Test Strips Start: 05/11/22 13:33:00 EST, See Instructions, Disp# 100 strip, as directed, other Start Date: 05/11/22 Status: Ordered albuterol CFC free 90 mcg/inh MDI Start: 02/08/22 13:17:00 EDT, 2 puff, inhaled, qid, Disp# 1 each, Refills: 3, PRN: as needed for wheezing, Pharmacy: [facility]/pharmacy #[id number] Start Date: 02/08/22 Status: Ordered Alpha Lipoic Acid 600 mg oral capsule Start: 05/11/22 13:24:00 EST, 1 cap, PO, Daily, Disp# 60 cap, other Start Date: 05/11/22 Status: Ordered atorvastatin 10 mg oral tablet Start: 01/15/23 16:38:00 EDT, See Instructions, Disp# 90 tab, Refills: 3, TAKE 1 TABLET BY MOUTH EVERY DAY, Pharmacy: [facility] STORE [id number] Start Date: 01/15/23 Status: Ordered BD 0.3 mL Ultra-Fine II Short Insulin Syringe 31G x 5/16" Start: 02/22/17 16:31:00, See Instructions, Disp# 100 unit, One with pen daily, Pharmacy: [id number] Start Date: 02/22/17 Status: Ordered BD needle Ultra-Fine III Mini Pen 31G x 5mm Start: 05/11/22 13:34:00 EST, See Instructions, Disp# 300 each, Refills: 3, Use as directed with insulin. Max ____/day. Use new pen needle with each injection., Pharmacy: [facility]/pharmacy #[id number] Start Date: 05/11/22 Status: Ordered cyanocobalamin 2500 mcg sublingual tablet Start: 08/29/22 10:37:00 EDT, 1 tab, SL, Daily, Disp# 90 tab, Refills: 0, Pharmacy: [facility]/pharmacy #[id number] Start Date: 08/29/22 Stop Date: 11/27/22 Status: Ordered FreeStyle Shelly 2 - 14 day reader Start: 09/01/22 8:57:00 EDT, See Instructions, Disp# 1 each, Refills: 1, Use with Freestyle Shelly 14 Day sensors, Pharmacy: [facility]/pharmacy #[id number] Start Date: 09/01/22 Status: Ordered FreeStyle Shelly 2 - 14 day sensor Start: 08/15/22 13:27:00 EDT, See Instructions, Disp# 6 each, Refills: 4, One sensor every two weeks, Pharmacy: [facility]/pharmacy #[id number] Start Date: 08/15/22 Status: Ordered Glucagon Emergency Kit for Low Blood Sugar 1 mg injection Start: 06/26/17 15:32:00, See Instructions, Disp# 3 kit, Refills: 2, For hypoglycemia as directed.,Pharmacy: [facility]/pharmacy #[id number] Start Date: 06/26/17 Status: Ordered lancets Start: 02/22/17 16:32:00, See Instructions, Disp# 100 unit, Refills: 3, Test four times daily, Pharmacy: [facility] [id number] Start Date: 02/22/17 Status: Ordered Lantus Solostar Pen 100 units/mL subcutaneous solution Start: 05/30/22 15:48:00 EST, 45 unit =, subQ, Daily, Disp# 15 mL, Refills: 5, Pharmacy: [facility]/pharmacy #[id number] Start Date: 05/30/22 Status: Ordered NovoLOG FlexPen 100 units/mL injectable solution Start: 08/02/22 14:05:00 EST, See Instructions, Disp# 60 unknown unit, Refills: 5, INJECT 20UNITS UNDER THE SKIN BEFORE MEALS 3 TIMES A DAY, Pharmacy: [facility] STORE [id number] Start Date: 08/02/22 Status: Ordered rosuvastatin 5 mg oral tablet Start: 05/11/22 13:39:00 EST, 1 tab, PO, Daily, Disp# 90 tab, other Start Date: 05/11/22 Status: Ordered Sutab oral tablet Start: 05/03/22 8:07:00 EST, See Instructions, Disp# 24 tab, Refills: 0, Follow [facility] by [facility], Note to Pharmacy: COUPON CODE: BIN: [id number]; PCN: [id number]; GROUP: [id number]; I.D. [phone], Pharmacy: [facility]/pharmacy #[id number] Start Date: 05/03/22 Status: Ordered timolol maleate 0.5% ophthalmic solution Start: 11/26/15 14:40:00, 1 drop, both eyes, Daily Start Date: 11/26/15 Status: Ordered Mental Status 02/08/23 Barriers to Learning one year None evide nt Mandatory Health Literacy Documentation Yes Health Literacy Communication Barriers N ever Primary Language Nicaraguan Problem List Condition Confirmation Course Effective Dates [...] type 2 diabetes mellitus Confirmed Active 1mother Diagnosis Diagnosis Type Effective Dates Health Status Clinical Service Informant Loose stools Discharge Diagnosis 02/08/23 Non-Specified Glaucoma Discharge Diagnosis 02/08/23 Elevated blood pressure reading Discharge Diagnosis 02/08/23 Insulin-treated type 2 diabetes mellitus Discharge Diagnosis 02/08/23 Neuropathy Discharge Diagnosis 02/08/23 Mixed hyperlipidemia Discharge Diagnosis 02/08/23 Procedures Procedure Date Related Diagnosis Body Site [...] X-ray 14 02/07/17 Completed Excision 1988 Completed [place] tooth 1977 Completed 1IMPRESSION: 1. There is [...] arthropathy at L5-S1. 15growth on neck -benign Vital Signs Most recent to oldest [Reference Range]: 1 Patient Weight 89.3 kg (02/08/23 2:51 PM) Heart Rate 71 bpm (02/08/23 2:51 PM) Respiratory Rate 16 br/min (02/08/23 2:51 PM) Blood Pressure 152/90mmHg (02/08/23 2:51 PM) BP Location # 1 Left Arm (02/08/23 2:51 PM) Social History Social History Type Response Smoking Status Never smoked cigaret nara Sex Male FCM Outpt Note * MD Josue, Colton P: PERFORM Event Display: FCM Outpt Note Authored Date: [id number] Chief Complaint 3M follow up, review a1c result. Left elbow pain. History of Present Illness Follow up diabetes - A1c 6.7. Walks after meals. Also with neuropathy and hyperlipidemia. Left elbow pain. Was working with draw [employer]. Seems to be getting better. Oldest brother gave him insulin. Truleo and Solostar. He can substitute for his insulin. Wonders about exocrine dysfunction. Stool feels greasy. Blood pressure elevated today - stress in journey here. Left ear feels "weird" with eating and drinking. Saw eye doctor - has glaucoma. Physical Exam Vitals & Measurements HR:71(Monitored) RR:16 BP:152/90 SpO2:96% WT:89.3kg WT:89.300kg(Dosing) PHQ2 Data(Data Documented on:02/08/2023 14:51) Emotional health assessment NEGATIVE Gen - NAD HEENT - wax in left canal Left elbow slightly tender lateral side Assessment/Plan 1.Insulin-treated type 2 diabetes mellitus chronic, stable continue insulin 2.Neuropathy chronic, stable 3.Mixed hyperlipidemia Chronic, stable, continue atorvastatin 10 mg 4.Glaucoma Sees Dr. Jones 5.Elevated blood pressure reading BP on my check 170/100 mm Hg - he will check at home. He will call if over 150/90 mm hg. I have personally spent35 minutes performing caru-lk-uutj and iht-uqtt-sl-face activities on thisdate of service. My activities included reviewing past records prior ot the encounter, reviewed past lab results, with extensive counseling. Problem List/Past Medical History Ongoing Atopic dermatitis Bilateral foot pain Chronic daily headache Family history of skin cancer FH: hemochromatosis Glaucoma Insulin-treated type 2 diabetes mellitus Microalbuminuria Mixed hyperlipidemia Neuropathy S/P shoulder surgery Stress due to family tension Tinea unguium Tremor Historical Abscess Skin lesion Tinea corporis Type 1 diabetes mellitus with target hemoglobin A1c of less than 7.5 percent Well adult exam Procedure/Surgical History CT of cervical spine (11/03/2022)CT of brain (11/03/2022)Colonoscopy (05/10/2022)EMG finding (09/21/2021)Ankle X-ray (02/08/2021)Colonoscopy (06/01/2020)Shave biopsy and cauterization of skin (05/18/2020)Surgery (05/04/2020)Excision (01/16/2019)MRI of brain without contrast (10/31/2018)Diagnostic arthroscopy of shoulder with debridement (11/15/2017)MRI of left shoulder (10/22/2017)Spine X-ray (02/07/2017)Excision (1988)[place] tooth (1977) Medications albuterol(albuterol CFC free 90 mcg/inh MDI), 2 puff, inhaled, qid, PRN, 3 refills alpha-lipoic acid(Alpha Lipoic Acid 600 mg oral capsule), 600 mg= 1 cap, PO, Daily atorvastatin(atorvastatin 10 mg oral tablet), See Instructions cyanocobalamin(cyanocobalamin 2500 mcg sublingual tablet), 2500 mcg= 1 tab, SL, Daily diabetes supplies(FreeStyle Shelly 2 - 14 day reader), See Instructions, 1 refills diabetes supplies(FreeStyle Shelly 2 - 14 day sensor), See Instructions, 4 refills diabetes supplies(Accu-Chek Active Test Strips), See Instructions diabetic supplies(lancets), See Instructions, 3 refills glucagon(Glucagon Emergency Kit for Low Blood Sugar 1 mg injection), See Instructions, 2 refills insulin aspart(NovoLOG FlexPen 100 units/mL injectable solution), See Instructions insulin glargine(Lantus Solostar Pen 100 units/mL subcutaneous solution), 45 unit, subQ, Daily, 5 refills magnesium sulfate/potass Cl/sodium sulf(Sutab oral tablet), See Instructions rosuvastatin(rosuvastatin 5 mg oral tablet), 5 mg= 1 tab, PO, Daily syringe(BD 0.3 mL Ultra-Fine II Short Insulin Syringe 31G x 5/16"), See Instructions syringe needles(BD needle Ultra-Fine III Mini Pen 31G x 5mm), See Instructions, 3 refills timolol ophthalmic(timolol maleate 0.5% ophthalmic solution), 1 drop, both eyes, Daily Allergies NKA Social History Smoking Status Never smoked cigarettes Alcohol - Low Risk Exercise - Regular exercise Home/Environment - Comments: In family stress Substance Abuse - No Risk Tobacco - Denies Tobacco Use Family History Heart disease: Mother and Father. Neuropathy: Brother, Brother, Brother, Brother and MGF. Type II diabetes mellitus: Mother, MGF and MGM. Health Status Family Member(s) Family Member(s) Relationship: Mother, Age: 91 Years Relationship: Father, Age: 70 Years Immunizations Vaccine Date Status pneumococcal 20-valent conjugate vaccine 02/08/2022 Given influenza virus vaccine, inactivated 03/16/2021 Recorded zoster vaccine, inactivated 07/30/2020 Recorded Comments : [facility] Pharmacy (Irina Martínez) influenza virus vaccine, inactivated 05/21/2018 Given tetanus/diphtheria/pertuss, acel (Tdap) 02/14/2016 Recorded Comments : 2019-02-21: Historical information-source unspecified tetanus/diphtheria/pertuss, acel (Tdap) 05/03/2011 Recorded Comments : 2019-02-21: Historical information-source unspecified Recommendations Health Maintenance Pending(in the next year) OverDue Adult Influenza Vaccine due12/02/22and every 1year Due Adult COVID-19 Vaccination due02/08/23Unknown Frequency Falls Plan of Care due02/08/23Unknown Frequency Shingles Vaccine due02/08/23One-time only Due In Future Diabetic Eye Exam not due until09/19/23and every 1year Diabetes Management A1c not due until02/07/24and every 1year Body Mass Index not due until02/08/24and every 1year Satisfied(in the past 1 year) Satisfied Body Mass Index on11/09/22.Satisfied by IMELDA Castellanos Courtney Diabetes Management A1c on02/07/23.Satisfied by Contributor_system, [email or web address] Diabetes Nephropathy Management on05/09/22.Satisfied by Contributor_system, [email or web address] Diabetic Eye Exam 03/31/22.Satisfied by IMELDA Castellanos Courtney Lipid Screening on08/11/22.Satisfied by Contributor_system, [email or web address] Pneumococcal Vaccine Older Adults on02/08/22.Satisfied by JOANNA Cifuentes Lindsey Electronic Signature on File Electronically Reviewed/Signed by: Colton aSlas MD Author Signature Dt/Tm:02/08/2023 03:43 PM Department of Family Medicine [facility] Patient Care team information Care Team Personnel Name: DEON Posey Janet Griffith Position: Nurse Pract - Gastro Member Role: Lifetime Relationship Address: Address: [address] [place] [address] Name: JONO Barrera Christina L Position: Physician - Podiatry Member Role: Lifetime Relationship Address: Address: [address] [facility] [address] [place] [address] [place] Name: MD Josue, Colton De La O Position: Physician - Family Med Member Role: Primary Care Provider Address: Address: [facility] [address] [place] [address] [place] Care Team Related Persons Name: LORNE GUTIERREZ Address: home [address] [place], [place] [phone] Name: LORNE GUTIERREZ Address: [facility] Address: home [address] [place], [place] [phone]
--- OUTSIDE RECORDS SUMMARY | 2023-05-19 03:35 | External Medical Summary | Continuity of Care Document ---
Author Name Unknown Organization [facility] [address] Address [address] [place], [place] [id number] Care Team Providers Care Reimbursement Consultant Name Role Phone Colton Salas Primary Care Physician [phone] [id number] Date(s): 02/07/23 - 02/07/[address] [facility] [address] [facility] [address] [place], [address] [place], [place] [phone] Encounter Diagnosis Type 2 diabetes mellitus without complications(Final) - Discharge Disposition: Home or Self Care [...] acel (Tdap) 3 05/03/11 Recorded 1Result Comment: [facility] Pharmacy (Irina Martínez) 2Result Comment: 2019-02-21: Historical information-source unspecified 3Result Comment: 2019-02-21: Historical information-source unspecified Medications Accu-Chek Active Test Strips Start: 05/11/22 13:33:00 EST, See Instructions, Disp# 100 strip, as directed, other Start Date: 05/11/22 Status: Ordered albuterol CFC free 90 mcg/inh MDI Start: 02/08/22 13:17:00 EDT, 2 puff, inhaled, qid, Disp# 1 each, Refills: 3, PRN: as needed for wheezing, Pharmacy: [facility]/pharmacy #[id number] Start Date: 02/08/22 Status: Ordered Alpha Lipoic Acid 600 mg oral capsule Start: 05/11/22 13:24:00 EST, 1 cap, PO, Daily, Disp# 60 cap, other Start Date: 05/11/22 Status: Ordered atorvastatin 10 mg oral tablet Start: 01/15/23 16:38:00 EDT, See Instructions, Disp# 90 tab, Refills: 3, TAKE 1 TABLET BY MOUTH EVERY DAY, Pharmacy: [facility] STORE [id number] Start Date: 01/15/23 Status: Ordered BD 0.3 mL Ultra-Fine II Short Insulin Syringe 31G x 5/16" Start: 02/22/17 16:31:00, See Instructions, Disp# 100 unit, One with pen daily, Pharmacy: [id number] Start Date: 02/22/17 Status: Ordered BD needle Ultra-Fine III Mini Pen 31G x 5mm Start: 05/11/22 13:34:00 EST, See Instructions, Disp# 300 each, Refills: 3, Use as directed with insulin. Max ____/day. Use new pen needle with each injection., Pharmacy: [facility]/pharmacy #[id number] Start Date: 05/11/22 Status: Ordered cyanocobalamin 2500 mcg sublingual tablet Start: 08/29/22 10:37:00 EDT, 1 tab, SL, Daily, Disp# 90 tab, Refills: 0, Pharmacy: [facility]/pharmacy #[id number] Start Date: 08/29/22 Stop Date: 11/27/22 Status: Ordered FreeStyle Shelly 2 - 14 day reader Start: 09/01/22 8:57:00 EDT, See Instructions, Disp# 1 each, Refills: 1, Use with Freestyle Shelly 14 Day sensors, Pharmacy: [facility]/pharmacy #[id number] Start Date: 09/01/22 Status: Ordered FreeStyle Shelly 2 - 14 day sensor Start: 08/15/22 13:27:00 EDT, See Instructions, Disp# 6 each, Refills: 4, One sensor every two weeks, Pharmacy: [facility]/pharmacy #[id number] Start Date: 08/15/22 Status: Ordered Glucagon Emergency Kit for Low Blood Sugar 1 mg injection Start: 06/26/17 15:32:00, See Instructions, Disp# 3 kit, Refills: 2, For hypoglycemia as directed.,Pharmacy: [facility]acy #[id number] Start Date: 06/26/17 Status: Ordered lancets Start: 02/22/17 16:32:00, See Instructions, Disp# 100 unit, Refills: 3, Test four times daily, Pharmacy: [id number] Start Date: 02/22/17 Status: Ordered Lantus Solostar Pen 100 units/mL subcutaneous solution Start: 05/30/22 15:48:00 EST, 45 unit =, subQ, Daily, Disp# 15 mL, Refills: 5, Pharmacy: [facility] #[id number] Start Date: 05/30/22 Status: Ordered NovoLOG FlexPen 100 units/mL injectable solution Start: 08/02/22 14:05:00 EST, See Instructions, Disp# 60 unknown unit, Refills: 5, INJECT 20UNITS UNDER THE SKIN BEFORE MEALS 3 TIMES A DAY, Pharmacy: [id number] Start Date: 08/02/22 Status: Ordered rosuvastatin 5 mg oral tablet Start: 05/11/22 13:39:00 EST, 1 tab, PO, Daily, Disp# 90 tab, other Start Date: 05/11/22 Status: Ordered Sutab oral tablet Start: 05/03/22 8:07:00 EST, See Instructions, Disp# 24 tab, Refills: 0, Follow instructions as given to [facility] by [facility], Note to Pharmacy: COUPON CODE: BIN: [id number]; PCN: [id number]; GROUP: [id number]; I.D. [phone], Pharmacy: [facility] #[id number] Start Date: 05/03/22 Status: Ordered timolol [...] X-ray 14 02/07/17 Completed Excision 1988 Completed [place] tooth 1977 Completed 1IMPRESSION: 1. There is [...] neck -benign Results Laboratory List Name Date Hemoglobin A1C (HEMOGLOBIN, A1C) 02/07/23 Most recent to oldest [Reference Range]: 1 Estimated Average Glucose 146 mg/dL 1 (02/07/23 7:31 AM) HbA1c [4.0-6.0 %] 6.7 % *HI* (02/07/23 7:31 AM) 1Result Comment: Testing Performed By: Dept of Pathology [facility] [address], [address], [place] [address] Social History Social History Type Response Smoking Status Never smoked cigaret nara Sex Male Patient Care team information Care Team Personnel Name: DEON Posey Janet Griffith Position: Nurse Pract - Gastro Member Role: Lifetime Relationship Address: Address: [address] [place] [id number] Name: JONO Barrera Christina L Position: Physician - Podiatry Member Role: Lifetime Relationship Address: Address: [address] [facility] [address] [place] [address] [place] Name: MD Josue, Colton De La O Position: Physician - Family Med Member Role: Primary Care Provider Address: Address: [address] [facility] [address] [place] [address] [place] Care Team Related Persons Name: LORNE GUTIERREZ Address: home [address] [place] [place], [place] [phone] Name: LORNE GUTIERREZ Address: [facility] Address: home [address] [place] [phone]
--- OUTSIDE RECORDS SUMMARY | 2023-05-19 03:35 | External Medical Summary | Continuity of Care Document ---
Author Name Unknown Organization [address] [place] [phone] Care Team Providers Care Membership Counselor Name Role Phone Colton Salas Primary Care Physician [phone] Encounter [facility] [id number] Date(s): 05/10/23 - 05/10/23 [facility] 1850 [facility] 207 [facility] [address] [address] [phone] Encounter Diagnosis Insulin-treated type 2 diabetes mellitus(Discharge Diagnosis) - 05/10/23 Discharge Disposition: Home or Self Care Attending Physician: MD Salas Joseph P Allergies, Adverse Reactions, Alerts No Known Allergies Assessment and Plan Extracted from: Title:Office Visit Note Author:MD Salas Jos eph P Date:05/10/23 1.Insulin-treated type 2 d iabetes mellitus Chronic, stable on novolog and glargine I have personally spent22 minutes performing zqdl-lf-[id number] and irx-gkbg-as-face activities on this date of service. My [...] acel (Tdap) 3 05/03/11 Recorded 1Result Comment: [facility] (Irina Martínez) 2Result Comment: 2019-02-21: Historical information-source unspecified 3Result Comment: 2019-02-21: Historical information-source unspecified Medications Accu-Chek Active Test Strips Start: 05/11/22 13:33:00 EST, See Instructions, Disp# 100 strip, as directed, other Start Date: 05/11/22 Status: Ordered albuterol CFC free 90 mcg/inh MDI Start: 02/08/22 13:17:00 EDT, 2 puff, inhaled, qid, Disp# 1 each, Refills: 3, PRN: as needed for wheezing, Pharmacy: [facility]/pharmacy #[id number] Start Date: 02/08/22 Status: Ordered Alpha Lipoic Acid 600 mg oral capsule Start: 05/11/22 13:24:00 EST, 1 cap, PO, Daily, Disp# 60 cap, other Start Date: 05/11/22 Status: Ordered atorvastatin 10 mg oral tablet Start: 01/15/23 16:38:00 EDT, See Instructions, Disp# 90 tab, Refills: 3, TAKE 1 TABLET BY MOUTH EVERY DAY, Pharmacy: [facility] STORE [id number] Start Date: 01/15/23 Status: Ordered BD 0.3 mL Ultra-Fine II Short Insulin Syringe 31G x 5/16" Start: 02/22/17 16:31:00, See Instructions, Disp# 100 unit, One with pen daily, Pharmacy: [id number] Start Date: 02/22/17 Status: Ordered BD needle Ultra-Fine III Mini Pen 31G x 5mm Start: 05/11/22 13:34:00 EST, See Instructions, Disp# 300 each, Refills: 3, Use as directed with insulin. Max ____/day. Use new pen needle with each injection., Pharmacy: [facility]/pharmacy #[id number] Start Date: 05/11/22 Status: Ordered cyanocobalamin 2500 mcg sublingual tablet Start: 08/29/22 10:37:00 EDT, 1 tab, SL, Daily, Disp# 90 tab, Refills: 0, Pharmacy: [facility]/pharmacy #[id number] Start Date: 08/29/22 Stop Date: 11/27/22 Status: Ordered FreeStyle Shelly 2 - 14 day reader Start: 09/01/22 8:57:00 EDT, See Instructions, Disp# 1 each, Refills: 1, Use with Freestyle Shelly 14 Day sensors, Pharmacy: [facility]/pharmacy #[id number] Start Date: 09/01/22 Status: Ordered FreeStyle Shelly 2 - 14 day sensor Start: 08/15/22 13:27:00 EDT, See Instructions, Disp# 6 each, Refills: 4, One sensor every two weeks, Pharmacy: [facility]/pharmacy #[id number] Start Date: 08/15/22 Status: Ordered Glucagon Emergency Kit for Low Blood Sugar 1 mg injection Start: 06/26/17 15:32:00, See Instructions, Disp# 3 kit, Refills: 2, For hypoglycemia as directed.,Pharmacy: [facility]/pharmacy #[id number] Start Date: 06/26/17 Status: Ordered lancets Start: 02/22/17 16:32:00, See Instructions, Disp# 100 unit, Refills: 3, Test four times daily, Pharmacy: [facility] [id number] [facility] Start Date: 02/22/17 Status: Ordered Lantus Solostar Pen 100 units/mL subcutaneous solution Start: 05/30/22 15:48:00 EST, 45 unit =, subQ, Daily, Disp# 15 mL, Refills: 5, Pharmacy: [facility]/pharmacy #[id number] Start Date: 05/30/22 Status: Ordered NovoLOG FlexPen 100 units/mL injectable solution Start: 08/02/22 14:05:00 EST, See Instructions, Disp# 60 unknown unit, Refills: 5, INJECT 20UNITS UNDER THE SKIN BEFORE MEALS 3 TIMES A DAY, Pharmacy: [facility] STORE [id number] Start Date: 08/02/22 Status: Ordered rosuvastatin 5 mg oral tablet Start: 05/11/22 13:39:00 EST, 1 tab, PO, Daily, Disp# 90 tab, other Start Date: 05/11/22 Status: Ordered Sutab oral tablet Start: 05/03/22 8:07:00 EST, See Instructions, Disp# 24 tab, Refills: 0, Follow instructions [facility] to [facility] by [facility], Note to Pharmacy: COUPON CODE: BIN: [id number]; PCN: [id number]; GROUP: [id number]; I.D. [id number], Pharmacy: [facility]/pharmacy #[id number] Start Date: 05/03/22 Status: Ordered timolol maleate 0.5% ophthalmic solution Start: 11/26/15 14:40:00, 1 drop, both eyes, Daily Start Date: 11/26/15 Status: Ordered Mental Status 05/10/23 Barriers to Learning one year None evide nt Mandatory Health Literacy Documentation Yes Health Literacy Communication Barriers N ever Primary Language Swedish Problem List Condition Confirmation Course Effective Dates [...] Diagnosis Diagnosis Type Effective Dates Health Status Cl inical Service Informant Insulin-treated type 2 diabetes mellitus Discharge Diagnosis 05/10/23 Procedures Procedure Date Related Diagnosis Body Site [...] X-ray 14 02/07/17 Completed Excision 1988 Completed [place] tooth 1977 Completed 1IMPRESSION: 1. There is [...] to oldest [Reference Range]: 1 Patient Weight 89.2 kg (05/10/23 3:23 PM) Temperature [36.5-37.9 DegC] 37.0 DegC (05/10/23 3:23 PM) Heart Rate 70 bpm (05/10/23 3:23 PM) Respiratory Rate 18 br/min (05/10/23 3:23 PM) Blood Pressure 140/90mmHg (05/10/23 3:23 PM) Cuff Pulse Pressure 50 mmHg (05/10/23 3:23 PM) Social History Social History Type Response Smoking Status Never smoked cigaret nara Sex Male FCM Outpt Note * MD Josue, Colton De La O: PERFORM Event Display: FCM Outpt Note Authored Date: [id number] Chief Complaint check up History of Present Illness For follow up. DM stable - ate more at Thanksgiving. A1c 6.9 Ringing in ears, both. Eyes doing well. Left ring finger locks at time. Physical Exam Vitals & Measurements T:37.0C HR:70(Monitored) RR:18 BP:140/90 SpO2:95% WT:89.200kg(Dosing) WT:89.2kg PHQ2 Data(Data Documented on:05/10/2023 15:22) Emotional health assessment NEGATIVE Gen- no acute distress Heart - regular Lungs - clear Assessment/Plan 1.Insulin-treated type 2 diabetes mellitus Chronic, stable on novolog and glargine I have personally spent22 minutes performing khxc-rx-wcsb and ifn-kops-nf-face activities on thisdate of service. My activities [...] (11/15/2017)MRI of left shoulder (10/22/2017)Spine X-ray (02/07/2017)Excision (1988)[place] tooth (1977) Medications albuterol(albuterol CFC free 90 [...] 1 mg injection), See Instructions, 2 refills influenza virus vaccine, inactivated(influenza virus vaccine, inactivated HIGH- DOSE preservative-free QUADravalent IM susp), 0.7 mL, IM, ONCE insulin aspart(NovoLOG FlexPen 100 units/mL injectable solution), [...] zoster vaccine, inactivated 07/30/2020 Recorded Comments : [facility] (Irina Martínez) influenza virus vaccine, inactivated 05/21/2018 Given tetanus/diphtheria/pertuss, acel (Tdap) 02/14/2016 Recorded Comments : 2019-02-21: Historical information-source unspecified tetanus/diphtheria/pertuss, acel (Tdap) 05/03/2011 Recorded Comments : 2019-02-21: Historical information-source unspecified Recommendations Health Maintenance Pending(in the next year) OverDue Adult Influenza Vaccine due12/02/22and every 1year Due Adult COVID-19 Vaccination due05/10/23Unknown Frequency Falls Plan of Care due05/10/23Unknown Frequency Shingles Vaccine due05/10/23One-time only Due In Future Diabetic Eye Exam not due until03/22/24and every 366day Diabetes Management A1c not due until05/09/24and every 366day Satisfied(in the past 1 year) Satisfied Body Mass Index on11/09/22.Satisfied by IMELDA Castellanos Courtney Diabetes Management A1c on05/09/23.Satisfied by Contributor_system, [email or web address] Diabetes Nephropathy Management on05/09/23.Satisfied by Contributor_system, [email or web address] Lipid Screening on08/11/22.Satisfied by Contributor_system, [email or web address] Electronic Signature on File Electronically Reviewed/Signed by: Colton Salas MD Author Signature Dt/Tm:05/10/2023 03:56 PM Department of Family Medicine W Patient Care team information Care Team Personnel Name: DEON Posey Janet Griffith Position: Nurse Pract - Pulmonary Med Member Role: Lifetime Relationship Address: Address: [address] [place] [id number] [place] Name: JONO Barrera Christina L Position: Physician - Podiatry Member Role: Lifetime Relationship Address: Address: [address] [facility] [address] [place] [address] [place] Name: MD Josue, Colton De La O Position: Physician - Family Med Member Role: Primary Care Provider Address: Address: [address] [facility] [address] [place] [address] [place] Care Team Related Persons Name: LORNE GUTIERREZ Address: home [address] [place], [place] [phone] Name: LORNE GUTIERREZ Address: [facility] Address: home [address] [place], [place] [phone]
[2023-05-19] MEDS: INSULIN ASPART PER UNIT CHARGE SC SCH ×4 (03:46→20:04)
[2023-05-19 04:43] LABS: Basophils # (auto) 0.05 K/uL (0.00-0.20); Basophils % (auto) 0.4 %; Eosinophils # (auto) 0.05 K/uL (0.00-0.50); Eosinophils % (auto) 0.4 %; Hemoglobin 15.1 g/dl (14.0-18.0); Immature Granulocytes # (auto) 0.04 K/uL (0.01-0.20); Immature Granulocytes % (auto) 0.3 %; Lymphocytes # (auto) 1.53 K/uL (1.20-3.40); Lymphocytes % (auto) 12.4 %; Mean Corpuscular Hemoglobin 31.3 pg (25.0-34.0); Mean Corpuscular Volume 87.1 fL (80.0-100.0); Mean Platelet Volume 10.9 fL (9.4-12.4); Monocytes # (auto) 1.07 K/uL (0.11-0.59); Monocytes % (auto) 8.7 %; Neutrophils # (auto) 9.55 K/uL (1.40-6.50); Neutrophils % (auto) 77.8 %; Platelet Count 192 K/uL (130-400); RDW Coefficient of Variation 12.1 % (11.5-14.5); RDW Standard Deviation 39.2 fL (36.4-46.3); Red Blood Count 4.82 M/uL (4.70-6.10); White Blood Count 12.29 K/ul (4.8-10.8)
[2023-05-19 04:50] LABS: Calcium 8.4 mg/dl (8.6-10.3); Creatinine Clr Calc Pharmacy 79.3 ml/min; Est GFR (African American) 90.5 ml/min; Est GFR (Non-African American) 78.1 ml/min; Potassium 4.2 mmol/L (3.5-5.1)
[2023-05-19] MEDS ORDERED: MoRPHine SULFATE 2 MG/ML CARP IV PRN (08:05)
[2023-05-19] MEDS: ATORVASTATIN 10 MG TAB PO SCH (09:10)
[2023-05-19] MEDS: TIMOLOL MALEATE 0.5% OP SOLN 5 ML BTL OP SCH (09:10)
[2023-05-19] MEDS: LACTATED RINGER'S 1,000 ML IV SCH ×2 (09:10→21:47)
[2023-05-19] MEDS: LANTUS PER UNIT CHARGE SQ SCH ×2 (09:10→21:46)
[2023-05-19] MEDS: ONDANSETRON INJ 2 MG/ML 2 ML VIAL IV PRN ×2 (10:53→21:52)
[2023-05-19] MEDS ORDERED: MoRPHine SULFATE 2 MG/ML CARP IV STA (11:29)
--- NOTE | 2023-05-19 11:41 | Hospitalist Progress Note ---
Date of Service May 19, 2023 Assessment & Plan (1) Right nephrolithiasis: Plan: Right 5 mm ureteral calculus and colic. Mild right hydronephrosis seen on CT scan. Renal function is normal. Appreciate urology consultation and recommendations. Continue Flomax and IV fluids for now. Parenteral pain control measures (2) Hypoxia: Plan: Transient from narcotic administration. Resolved (3) Vomiting: Plan: Multiple episodes of nausea and vomiting on arrival. Due to severe ureteral colic pain. Now resolved. (4) Hydronephrosis: Plan: Mild right hydronephrosis seen on CT scan. Renal function is normal. Serial labs. (5) Diabetes mellitus: Plan: Eventual advancement to ADA diet. Sliding scale coverage for now. Basal insulin therapy Plan Anticipate eventual discharge to home within the next day or 2 Admission and Anticipated Discharge Date Admission Date: May 18, 2023 Subjective Alert and oriented. Urology has seen the patient and will reevaluate him later today for consideration for cystoscopy. Parenteral pain control measures for now. Continue IV fluids and Flomax Review of Systems 2 Review of Systems: Constitutional-no fever or chills ENT-no blurred vision, no double vision, no epistaxis, no sore throat Respiratory-no cough, no wheezing, no shortness of breath Cardiac-no palpitations, no chest pain, no syncope GI-no nausea, vomiting, diarrhea, melena, hematochezia -no urinary retention, no urinary incontinence, no dysuria, no hematuria. Right ureteral colic symptoms Musculoskeletal-no joint pain, no muscle tenderness Skin-no bruising, no rashes, no pruritus Neuro-no isolated weakness, no paresthesia, no weakness Psych-no depression, no anxiety Physical Exam 2 Physical Exam: General-alert and oriented x3, no fevers, no chills HEENT-head atraumatic and normocephalic, pupils equal and reactive to light, extraocular muscles intact Neck-no lymphadenopathy or thyromegaly, trachea midline Chest-clear to auscultation percussion. No rales wheezing or rhonchi Cardiac-regular rate and rhythm, normal S1 and S2 Abdomen-normal bowel sounds, nontender, no hepatosplenomegaly Extremities-no cyanosis, clubbing, or edema Neuro-cranial nerves II through XII intact, motor and sensory function within normal limits, strength symmetrical, no focal deficits Psych-normal affect, normal mood Results & Data Results & Data Vital Signs (Past 12 Hours) Vital Signs Pulse Pulse Resp BP BP Pulse Ox O2 Del Method 05/19/23 11:16 69 22 183/90 H 91 Room Air 05/19/23 09:00 72 17 05/19/23 09:00 170/91 H 05/19/23 08:30 150/116 H 05/19/23 08:30 70 15 05/19/23 08:00 70 19 05/19/23 08:00 144/87 H 05/19/23 07:30 72 12 05/19/23 07:30 137/87 05/19/23 07:23 71 05/19/23 07:00 72 13 05/19/23 05:30 73 17 135/60 97 Room Air 05/19/23 04:30 70 16 152/80 H 96 Room Air 05/19/23 03:00 67 16 139/84 96 Room Air 05/19/23 02:00 65 15 131/78 100 Room Air 05/19/23 01:30 64 12 133/82 100 Room Air 05/19/23 00:30 68 17 151/77 H 94 Room Air 05/19/23 00:00 71 16 118/70 94 Room Air Laboratory Results 05/19/23 04:06 05/19/23 04:06 PG Care Time/CCT Total # of Minutes Spent Total Time Spent with Patient: Total time spent is greater than 50% in coordination of care (as documented) at patient's floor/unit and/or counseling patient: Coding Level of Care Code 02840 SUB INP/OBS CARE 3/50MIN Diagnoses Right nephrolithiasis N20.0 Hypoxia R09.02 Vomiting R11.2 Nausea presence: with nausea Vomiting type: unspecified Hydronephrosis N13.2 Hydronephrosis type: with renal calculous obstruction Diabetes mellitus E11.9 (3) Vomiting Nausea presence: with nausea Vomiting type: unspecified Qualified Code(s): R 11.2 - Nausea with vomiting, unspecified (4) Hydronephrosis Hydronephrosis type: with renal calculous obstruction Qualified Code(s): N 13.2 - Hydronephrosis with renal and ureteral calculous obstruction
[2023-05-19] MEDS: MoRPHine SULFATE 2 MG/ML CARP IV PRN (21:46)
[2023-05-20] MEDS: MoRPHine SULFATE 2 MG/ML CARP IV PRN ×3 (02:44→11:51)
[2023-05-20] MEDS: INSULIN ASPART PER UNIT CHARGE SC SCH ×4 (03:12→20:26)
[2023-05-20] MEDS: LACTATED RINGER'S 1,000 ML IV SCH ×3 (06:10→21:50)
[2023-05-20 06:34] LABS: Basophils # (auto) 0.03 K/uL (0.00-0.20); Basophils % (auto) 0.3 %; Eosinophils # (auto) 0.02 K/uL (0.00-0.50); Eosinophils % (auto) 0.2 %; Hematocrit (blood only) 38.6 % (42.0-52.0); Hemoglobin 13.9 g/dl (14.0-18.0); Immature Granulocytes # (auto) 0.03 K/uL (0.01-0.20); Immature Granulocytes % (auto) 0.3 %; Lymphocytes # (auto) 1.32 K/uL (1.20-3.40); Mean Corpuscular Hemoglobin 31.2 pg (25.0-34.0); Mean Corpuscular Volume 86.5 fL (80.0-100.0); Mean Platelet Volume 10.6 fL (9.4-12.4); Monocytes # (auto) 0.92 K/uL (0.11-0.59); Monocytes % (auto) 8.4 %; Neutrophils # (auto) 8.68 K/uL (1.40-6.50); Neutrophils % (auto) 78.8 %; Platelet Count 187 K/uL (130-400); RDW Coefficient of Variation 11.9 % (11.5-14.5); RDW Standard Deviation 37.7 fL (36.4-46.3); Red Blood Count 4.46 M/uL (4.70-6.10)
[2023-05-20 06:56] LABS: BUN Creatinine Ratio 19.2 (10-20); Blood Urea Nitrogen 15 mg/dl (6-23); Calcium 8.5 mg/dl (8.6-10.3); Carbon Dioxide 25 mmol/L (21-32); Chloride 108 mmol/L (98-107); Creatinine Clr Calc Pharmacy 101.7 ml/min; Est GFR (Non-African American) 94.1 ml/min; Glucose 112 mg/dl (70-99(Fasting))
[2023-05-20 07:37] LABS: Potassium 3.8 mmol/L (3.5-5.1)
[2023-05-20] MEDS: ATORVASTATIN 10 MG TAB PO SCH (08:30)
[2023-05-20] MEDS: LANTUS PER UNIT CHARGE SQ SCH ×2 (08:31→20:26)
[2023-05-20] MEDS: ONDANSETRON INJ 2 MG/ML 2 ML VIAL IV PRN (08:45)
[2023-05-20] MEDS ORDERED: DOCUSATE SODIUM 100 MG CAP PO ONE (10:30)
[2023-05-20] MEDS: TIMOLOL MALEATE 0.5% OP SOLN 5 ML BTL OP SCH (10:40)
--- NOTE | 2023-05-20 10:42 | Hospitalist Progress Note ---
Date of Service May 20, 2023 Assessment & Plan (1) Right nephrolithiasis: Plan: Right 5 mm ureteral calculus and colic. Mild right hydronephrosis seen on CT scan. Renal function remained stable and normal. Appreciate urology consultation and recommendations. Continue Flomax and IV fluids for now. Parenteral pain control measures (2) Hypoxia: Plan: Transient from narcotic administration. Resolved (3) Vomiting: Plan: Multiple episodes of nausea and vomiting on arrival. Due to severe ureteral colic pain. Now resolved. (4) Hydronephrosis: Plan: Mild right hydronephrosis seen on CT scan. Renal function is normal. Serial labs. (5) Diabetes mellitus: Plan: Eventual advancement to ADA diet. Sliding scale coverage for now. Basal insulin therapy Plan Hopeful discharge to home tomorrow, May 21 Admission and Anticipated Discharge Date Admission Date: May 18, 2023 Supervising Physician Co-Signing Physician Notes I have personally seen, evaluated and examined the patient. I have also personally discussed the management of the patient with the ANITA and I agree with the exam findings documented in the history and physical examination and the documented assessment and plan unless otherwise stated below. HEENT: Normocephalic atraumatic pupils are equal round and reactive to light bilaterally. No scleral icterus no conjunctival injection external auditory canals are patent septum is in the midline nose is without discharge oral mucosa is pink and moist without lesion. NECK: Supple no rigidity no lymphadenopathy no thyromegaly no carotid bruits no JVD no masses. HEART: Regular rate and rhythm I do not appreciate any ectopy or rub. No murmur. LUNGS: Clear to auscultation bilaterally and anteriorly with no evidence of adventitious sounds/wheezes rales or rhonchi. ABDOMEN: Soft nontender, no rebound, no peritoneal signs, positive bowel sounds, no appreciable organomegaly. EXTREMITIES: Intact, no peripheral cyanosis, clubbing or edema. Strength is 5 out of 5 in extremities x4, no pathological reflexes. NEUROLOGICAL: He is mildly somnolent I had to wake him up once during the exam but he is alert and oriented times 3 when awake and cranial nerves II through XII are grossly intact with no focal deficit elicited upon examination. No tremor. Assessment/plan: As described above. N.p.o. after midnight Flomax IV fluids strain urine consult urology for possible stent placement pending clinical course. At this time we will hold off on IV antibiotic therapy given the fact the patient has no fever his urine does not reflect infection at this time however low threshold if the patient does spike a fever or leukocytosis worsens to begin empiric antibiotics therapy Subjective Feeling better overall. Intermittent ureteral colic requiring parenteral narcotics. He is on IV fluids and Flomax. Hopefully he will pass the 5 mm stone and will avoid cystoscopy and stent placement. Renal function is stable Review of Systems 2 Review of Systems: Constitutional-no fever or chills ENT-no blurred vision, no double vision, no epistaxis, no sore throat Respiratory-no cough, no wheezing, no shortness of breath Cardiac-no palpitations, no chest pain, no syncope GI-no nausea, vomiting, diarrhea, melena, hematochezia -no urinary retention, no urinary incontinence, no dysuria, no hematuria. Intermittent right ureter colic Musculoskeletal-no joint pain, no muscle tenderness Skin-no bruising, no rashes, no pruritus Neuro-no isolated weakness, no paresthesia, no weakness Psych-no depression, no anxiety Physical Exam 2 Physical Exam: General-alert and oriented x3, no fevers, no chills HEENT-head atraumatic and normocephalic, pupils equal and reactive to light, extraocular muscles intact Neck-no lymphadenopathy or thyromegaly, trachea midline Chest-clear to auscultation percussion. No rales, wheezing or rhonchi Cardiac-regular rate and rhythm, normal S1 and S2 Abdomen-normal bowel sounds, nontender, no hepatosplenomegaly Extremities-no cyanosis, clubbing, or edema Neuro-cranial nerves II through XII intact, motor and sensory function within normal limits, strength symmetrical, no focal deficits Psych-normal affect, normal mood Results & Data Results & Data Vital Signs (Past 12 Hours) Vital Signs Temp Pulse Pulse Resp BP BP Pulse Ox 05/20/23 08:08 37.1 C 68 13 162/82 H 94 05/20/23 07:54 73 05/20/23 03:00 36.8 C 71 20 171/82 H 95 05/20/23 00:00 82 O2 Del Method 05/20/23 08:08 Room Air 05/20/23 07:54 05/20/23 03:00 Room Air 05/20/23 00:00 Laboratory Results 05/20/23 05:55 05/20/23 07:10 PG Care Time/CCT Total # of Minutes Spent Total Time Spent with Patient: Total time spent is greater than 50% in coordination of care (as documented) at patient's floor/unit and/or counseling patient: Coding Level of Care Code 63377 SUB INP/OBS CARE 2/35MIN Diagnoses Right nephrolithiasis N20.0 Hypoxia R09.02 Vomiting R11.2 Nausea presence: with nausea Vomiting type: unspecified Hydronephrosis N13.2 Hydronephrosis type: with renal calculous obstruction Diabetes mellitus E11.9 (3) Vomiting Nausea presence: with nausea Vomiting type: unspecified Qualified Code(s): R 11.2 - Nausea with vomiting, unspecified (4) Hydronephrosis Hydronephrosis type: with renal calculous obstruction Qualified Code(s): N 13.2 - Hydronephrosis with renal and ureteral calculous obstruction
[2023-05-20] MEDS: DOCUSATE SODIUM 100 MG CAP PO SCH (20:26)
[2023-05-21] MEDS: INSULIN ASPART PER UNIT CHARGE SC SCH ×5 (03:44→21:18)
[2023-05-21] MEDS: LACTATED RINGER'S 1,000 ML IV SCH ×3 (05:46→20:37)
[2023-05-21 09:15] LABS: Basophils # (auto) 0.07 K/uL (0.00-0.20); Basophils % (auto) 0.7 %; Eosinophils # (auto) 0.13 K/uL (0.00-0.50); Eosinophils % (auto) 1.3 %; Hematocrit (blood only) 45.3 % (42.0-52.0); Hemoglobin 15.9 g/dl (14.0-18.0); Immature Granulocytes # (auto) 0.04 K/uL (0.01-0.20); Immature Granulocytes % (auto) 0.4 %; Lymphocytes # (auto) 2.33 K/uL (1.20-3.40); Lymphocytes % (auto) 23.6 %; Mean Corpuscular Hgb Conc 35.1 g/dL (32.0-36.0); Mean Corpuscular Volume 88.3 fL (80.0-100.0); Mean Platelet Volume 10.4 fL (9.4-12.4); Monocytes # (auto) 0.99 K/uL (0.11-0.59); Neutrophils # (auto) 6.33 K/uL (1.40-6.50); Platelet Count 199 K/uL (130-400); RDW Coefficient of Variation 11.9 % (11.5-14.5); RDW Standard Deviation 38.1 fL (36.4-46.3); Red Blood Count 5.13 M/uL (4.70-6.10); White Blood Count 9.89 K/ul (4.8-10.8)
[2023-05-21 09:19] LABS: BUN Creatinine Ratio 16.7 (10-20); Creatinine Clr Calc Pharmacy 110.7 ml/min; Est GFR (African American) 112.7 ml/min; Est GFR (Non-African American) 97.2 ml/min; Potassium 3.8 mmol/L (3.5-5.1)
--- NOTE | 2023-05-21 09:57 | Urology Progress Note ---
Date of Service May 21, 2023 Assessment & Plan (1) Calculus of proximal right ureter: (2) Renal colic: (3) Hydronephrosis: Plan: Follow-up of 5 mm proximal right ureteral stone, hydronephrosis Afebrile, hemodynamically stable Labs reviewed creatinine0.72, no leukocytosis Denies flank discomfort overnight or at present Straining urine, denies stone passage We discussed options for stone management including right ureteral stent placement and possible stone treatment today versus discharge to home for trial of passage if pain is controlled Discussed outpatient follow-up to discuss outpatient surgery if he has not passed stone After discussion, he would like to have KUB and consider options further KUB reviewed and discussed with patient, no change in right proximal ureteral stone We reviewed stone management options as discussed previously He elects for right ureteral stent placement with possible stone treatment today Proceed to OR today for cystoscopy, retrograde pyelogram, possible right ureteroscopy and stone treatment, right ureteral stent placement Risks and benefits of procedure to be reviewed with patient by Dr. Limon Will cover with Roscoeef preoperatively Keep n.p.o. for procedure Attending note: Patient independently assessed, examined, interviewed, and evaluated. Agree with note as above. Patient's vitals and labs were all reviewed. Pertinent values in the HPI and plan section. Imaging was reviewed interpreted by myself. Agree with read. Vitals were reviewed. Discussed findings extensively with patient and family. Reviewed with nurse practitioner as well as consulting physicians/team. Patient's complicated medical and surgical history was reviewed and summarized above. Patient's surgical, medical, social, and family history were all reviewed with pertinent values as above. Discussed patient's current diagnosis as well as concerns and issues. Reviewed different options moving forward. Discussed potential risks and benefits as well as possible options and concerns. Reviewed potential surgical options and interventions. Discussed potential issues and concerns related to intervention. Risk and benefits were discussed extensively with patient and any available family. Discussed potential risks related to anesthesia. Discussed risks of bleeding infection and injury. Patient with obstructing stone. Has been dealing with ongoing issues with pain nausea vomiting and discomfort. Increasing in severity. KUB showing persistent stone. Discussed extensively different options. Discussed possible intervention. Reviewed extensively risk and benefits including possible outcomes and expe ctations. Discussed possible need for drainage with stent placement. Patient was agreeable to move forward with intervention. Risks and benefits discussed at length for procedure. These include bleeding, infection, injury to surrounding tissues or organs, and risks associated with anesthesia. Patient states understanding and agrees to proceed. Will sign consent and schedu le. Plan for Cystoscopy with right ureteroscopy and stone treatment. Admission and Anticipated Discharge Date Admission Date: May 18, 2023 Subjective Patient seen and examined at bedside this morning, chart reviewed No acute issues overnight Denies flank pain or discomfort overnight He reports he last had pain around 3 PM yesterday He is straining urine, denies stone passage Voiding spontaneously, no dysuria or hematuria Denies nausea, vomiting, fever, chills Review of Systems Constitutional: as per Subjective / HPI Gastrointestinal: as per Subjective / HPI Genitourinary: + as per Subjective / HPI Physical Exam Physical Exam: General: well-appearing, no acute distress HEENT: Normocephalic, mucous membranes moist Pulmonary: Nonlabored respirations Abdomen: Nondistended Extremities: Moves all 4 spontaneously Neuro: No gross deficits Psych: alert and oriented, normal mood Skin: Warm, dry, no rashes noted Results & Data Vital Signs (Past 12 Hours) Vital Signs Temp Pulse Pulse Pulse Resp BP BP 05/21/23 07:28 85 05/21/23 07:17 36.6 C 67 16 151/90 H 05/21/23 03:00 36.7 C 90 18 133/73 05/21/23 00:00 71 05/20/23 22:00 36.9 C 68 18 158/90 H Pulse Ox O2 Del Method 05/21/23 07:28 05/21/23 07:17 93 Room Air 05/21/23 03:00 93 Room Air 05/21/23 00:00 05/20/23 22:00 93 Room Air PG Care Time/CCT Total # of Minutes Spent Total Time Spent with Patient: Total time spent is greater than 50% in coordination of care (as documented) at patient's floor/unit and/or counseling patient: Coding Level of Care Code 17741 SUB INP/OBS CARE 2/35MIN Diagnoses Calculus of proximal right ureter N20.1 Renal colic N23 Hydronephrosis N13.2 Hydronephrosis type: with renal calculous obstruction (3) Hydronephrosis Hydronephrosis type: with renal calculous obstruction Qualified Code(s): N13.2 - Hydronephrosis with renal and ureteral calculous obstruction
--- NOTE | 2023-05-21 10:13 | XRay Report ---
KUB HISTORY: Right ureteral stone COMPARISON: Abdomen and pelvis CT 05/18/2023. FINDINGS: The bowel gas pattern is unremarkable. There are no dilated loops of small bowel to suggest an obstruction. No change in the 6 mm stone within the proximal right ureter. This is adjacent to t he right L3 transverse process. Calcifications in the deep pelvis are consistent with phleboliths. No additional renal calculi identified. No pneumoperitoneum or pneumatosis. IMPRESSION: No change in the 6 mm proximal right ureteral stone. ACT 112: Negative or not required by law. Electronically signed by: Vaibhav Gama M.D. 05/21/2023 10:12 AM
[2023-05-21] MEDS: ATORVASTATIN 10 MG TAB PO SCH (10:18)
[2023-05-21] MEDS: TIMOLOL MALEATE 0.5% OP SOLN 5 ML BTL OP SCH (10:18)
[2023-05-21] MEDS: DOCUSATE SODIUM 100 MG CAP PO SCH ×2 (10:19→21:18)
[2023-05-21] MEDS: LANTUS PER UNIT CHARGE SQ SCH ×2 (10:20→21:22)
[2023-05-21] MEDS ORDERED: ceFAZolin 2000MG 2,000 MG/15 ML SYR IV ONE (10:54)
[2023-05-21] MEDS ORDERED: ceFAZolin 2,000 MG/15 ML IV PUSH IV ONE (14:24)
[2023-05-21] MEDS ORDERED: ATROPINE SULFATE 0.1 MG/ML 10ML SYR IV PRN (14:34)
[2023-05-21] MEDS ORDERED: PROMETHAZINE HCL 6.25 MG in SODIUM CHLORIDE 0.9% 50 ML IV PRN (14:34)
[2023-05-21] MEDS ORDERED: ONDANSETRON INJ 2 MG/ML 2 ML VIAL IV PRN (14:34)
[2023-05-21] MEDS ORDERED: ePHEDrine sulfate 50 MG/ML AMP IV PRN (14:34)
[2023-05-21] MEDS ORDERED: fentaNYL citrate PF 100 MCG/2 ML VIAL IV PRN (14:34)
--- NOTE | 2023-05-21 14:35 | Anesthesiology Consultation ---
Date of Service May 21, 2023 Assessment & Plan (1) Encounter for pre-operative examination: Chart Review Chart Review: Acceptable Risk for Surgery and Patient NOT seen in Pre Admission Testing Consults Requested none History Surgery Operation Date: 05/21/23 10:10 Proposed Procedures p Cystoscopy Right Ureteroscopy, Right Stent Placement, Possible Stone Treatment - Maynor Limon, DO Height/Weight Height: 5 ft 8 in Weight: 91.3 kg Allergies Allergy/AdvReac Type Severity Reaction Status Date / Time No Known Allergies Allergy Mild NONE Verified 05/18/23 18:34 Medications Home Medications Medication Instructions Recorded Confirmed Last Taken glucagon 1 mg solution for 1 mg subcut DIRECTED PRN 07/29/21 05/18/23 Unknown injection (Glucagon Emergency Kit) hypoglycemia insulin glargine 100 unit/mL (3 45 unit subcut QPM 07/29/21 05/18/23 05/17/23 mL) subcutaneous pen (Basaglar KwikPen U-100 Insulin) insulin regular human 100 unit/mL 1 sliding scale dose subcut 07/29/21 05/18/23 05/18/23 (3 mL) subcutaneous pen (Novolin R USEASDIRECTD FlexPen) timolol maleate 0.5 % eye drops 1 drp OPB DAILY 07/29/21 05/18/23 05/18/23 atorvastatin 10 mg tablet 10 mg PO DAILY 05/18/23 05/18/23 05/18/23 Active Medications Generic Name Dose Route Start Last Admin Trade Name Freq PRN Reason Stop Dose Admin Atorvastatin Calcium 10 mg 05/19/23 09:00 05/21/23 10:18 Atorvastatin 10 Mg Tab PO 06/18/23 08:59 10 mg DAILY MATTHEW Administration Dextrose 25 - 50 ml 05/18/23 21:06 05/21/23 13:28 Dextrose 50% 50 Ml Syringe IV 06/17/23 21:05 25 ml UD PRN Administration Hypoglycemia Protocol Protocol Docusate Sodium 100 mg 05/20/23 21:00 05/21/23 10:19 Docusate Sodium 100 Mg Cap PO 06/19/23 20:59 100 mg BID MATTHEW Administration Lactated Ringer's 1,000 mls @ 125 mls/hr 05/19/23 20:30 05/21/23 13:17 Lr IV 06/18/23 20:29 125 mls/hr .Q8H MATTHEW Administration Insulin Aspart 0 units 05/18/23 21:15 05/21/23 08:31 Insulin Aspart Per Unit Charge SC 06/17/23 21:14 Not Given Q6H MATTHEW Insulin Glargine 15 units 05/19/23 09:00 05/21/23 10:20 Lantus Per Unit Charge SQ 06/18/23 08:59 15 units BID MATTHEW Administration Morphine Sulfate 2 mg 05/19/23 11:22 05/20/23 11:51 Morphine Sulfate 2 Mg/Ml Carp IV 06/02/23 08:04 2 mg Q3H PRN Administration Pain Ondansetron HCl 4 mg 05/18/23 21:20 05/20/23 08:45 Ondansetron Inj 2 Mg/Ml 2 Ml Vial IV 06/17/23 21:29 4 mg Q6H PRN Administration nausea and vomiting Timolol Maleate 1 drops 05/19/23 09:00 05/21/23 10:18 Timolol Maleate 0.5% Op Soln 5 Ml Btl OP 06/18/23 08:59 1 drops DAILY MATTHEW Administration NPO Date Last Intake of Fluids: 05/20/23 Time Last Intake of Fluids: 21:00 Date Last Intake of Solids: 05/20/23 Time Last Intake of Solids: 12:00 Past Medical History Medical History (Updated 05/21/23 @ 14:36 by Kevin Ruggiero MD) Encounter for pre-operative examination Hydronephrosis Diabetic peripheral neuropathy Diabetes mellitus Microalbuminuria Low back pain Glaucoma Exercise / Class Metabolic Activity II 4-5 Yardwork/Stairs/Walk up hill Past Family History Family History Family/Other Skin cancer (melanoma) Hemochromatosis Past Surgical History Surgical History H/O arthroscopy of shoulder S/P wisdom tooth extraction S/P skin biopsy S/P colonoscopy Social History Smoking Status: Never smoker Hx Alcohol Use: No Hx Substance Use: No Physical Exam Vital Signs Last Vital Signs Temp 37.1 C 05/21/23 14:13 Pulse 69 05/21/23 14:13 Resp 20 05/21/23 14:13 BP 171/89 H 05/21/23 14:13 Pulse Ox 97 05/21/23 14:13 O2 Del Method Room Air 05/21/23 14:13 O2 Flow Rate 2 05/18/23 20:46 Testing Laboratory Results 05/21/23 08:40 05/21/23 08:40 Urine Color Yellow 05/18/23 18:29 Urine Appearance Clear (Clear) 05/18/23 18:29 Urine pH 7.0 (4.5-7.5) 05/18/23 18:29 Ur Specific [place] 1.015 (1.000-1.030) 05/18/23 18:29 Urine Protein Negative (Negative) 05/18/23 18:29 Urine Glucose (UA) Negative (Negative) 05/18/23 18: Urine Ketones Negative (Negative) 05/18/23 18: Urine Nitrite Negative (Negative) 05/18/23 18:29 Ur Leukocyte Esterase Negative (Negative) 05/18/23 18:29 Urine WBC (Auto) 1-5 /hpf (0-5) 05/18/23 18:29 Urine RBC (Auto) 0-4 /hpf (0-4) 05/18/23 18:29 U Hyaline Cast (Auto) 1-5 /lpf (0-5) 05/18/23 18:29 U Epithel Cells (Auto) 20-30 /lpf (0-5) H 05/18/23 18:29 Urine Bacteria (Auto) Negative (Negative) 05/18/23 18:29 05/21/23 05/21/23 05/21/23 14:35 13:45 13:19 POC Glucose 100 H 126 H 68 L* 05/21/23 05/21/23 05/21/23 13:17 07:17 03:41 POC Glucose 68 L* 79 81 Electrocardiogram Date: 01/28/22 DICTATED BY: Paul Coulter MD Test Reason : Blood Pressure : / mmHG Vent. Rate : 075 BPM Atrial Rate : 075 BPM P-R Int : 116 ms QRS Dur : 078 ms QT Int : 402 ms P-R-T Axes : 023 009 021 degrees QTc Int : 448 ms Normal sinus rhythm Normal ECG No previous ECGs available Confirmed by Paul Coulter ([id number]) on 01/28/2022 4:06:04 PM
[2023-05-21] MEDS ORDERED: LIDOCAINE 2% 2 ML VIAL/AMP(20MG/ML) INFIL ONE (14:59)
[2023-05-21] MEDS ORDERED: ONDANSETRON INJ 2 MG/ML 2 ML VIAL ONE (14:59)
[2023-05-21] MEDS ORDERED: fentaNYL citrate PF 100 MCG/2 ML VIAL ONE (14:59)
[2023-05-21] MEDS ORDERED: PROPOFOL IV EMULSION 10 MG/ML 20 ML VIAL IV ONE (14:59)
[2023-05-21] MEDS ORDERED: DIATRIZOATE MEGLUMINE 30% 100ML VIAL INSTIL PRN (15:24)
--- NOTE | 2023-05-21 15:58 | Fluoroscopy Report ---
FL retrograde includes kub CLINICAL HISTORY: RT CYSTO STENT TECHNIQUE: 4 views were obtained with the C-arm in the OR with the above procedure. Total fluoroscopy time was 20.7 seconds. Radiation dose was 5.13 mGy. Comparison: Comparison is made to CT abdomen pelvis 05/18/2023 FINDINGS/IMPRESSION: Intraoperative images were obtained of retrograde pyelogram and stent placement on the right. In the final images, the stent is in satisfactory position. Please correlate with intraoperative fluoroscopy and operative report. ACT 112: Negative or not required by law. Electronically signed by: Kahlil Estrella M.D. 05/21/2023 3:56 PM
--- NOTE | 2023-05-21 16:03 | Operative Report ---
PG Post Operative Report Pre & Post Diagnosis Operation Date: 05/21/23 10:10 Pre-Op Diagnosis: Calculus of proximal right ureter, renal colic,hydronephrosis Post-Op Diagnosis: Calculus of proximal right ureter, renal colic,hydronephrosis I identified the patient and participated in the time-out.: Yes Procedure Operation Date: 05/21/23 10:10 Actual Procedures p Cystoscopy with Right Ureteroscopy, Retrograde Pyelogram, Ureteral Dilation,Laser Lithotripsy, Stone Basket Extraction, Right Stent Placement - Maynor Limon DO Surgeon Maynor Limon, II, DO Contract Consultant None Estimated Blood Loss 1 Findings Consistent with Post-Op Diagnosis Stone impacted in the mid ureter with significant stricture of the distal mid ureter. Stone destroyed to dust and small fragments and larger fragments removed. Specimens Stone Fragments Drains 6 Fr Multilength Anesthesia Type General Complications none Disposition Disposition: Recovery Room Indications Patient with bothersome stones. Risks and benefits discussed at length. Description of Procedure Patient was consented and brought back to the operating room. Patient was placed under anesthesia in the supine position and moved to the dorsal lithotomy position. Patient was prepped and draped in the regular sterile fashion. A time out was completed. A 30degree Cystoscope was placed into the bladder and the entire bladder was examined. The UO's were identified. The UO was cannulized with a catheter and a retrograde pyelogram was completed. A wire was then placed. The Rigid ureteroscope was taken into the ureter. The distal portion of the mid ureter had significant narrowing with stricture. This was dilated after confirming the stone location on the fluoroscopy. The scope advanced. Again in the mid ureter a significant stricture was discovered. It was difficult to advance and the stone was identified impacted into the wall. The rigid scope was unable to access the impacted stone. A second wire was then placed. The flexible scope was then taken over the second wire and advanced to the mid ureter. A laser was selected and the stone was destroyed to dust and fragments. Larger fragments were grasped and removed and sent for analysis. The scope was then able to advance to the renal pelvis. The entire pelvis was examined. A moderate amount of old appearing blood clots and debris was appreciated. Visualization was extremely limited. No visable residual large fragments or areas of concern were noted. The scope was slowly removed with the wire left in place. Contrast was placed through the scope for a pyelogram to assist in stent placement. The entire ureter was examined as the scope was slowly removed. No obstructions or other areas of concern were noted. The areas of dilation were open without major injury. The mid ureter had an area of significant inflammation from the impacted ureteral stone. With the wire in place, a 6 Fr Double J stent was placed. It was confirmed with fluoroscopy. With the stent in place, the bladder was emptied. The scope was removed. The patient was cleaned, aroused from anesthesia, and transferred to the pacu in stable condition having tolerated the procedure well with no complications. I was present and participated in all aspects of the procedure. The patient will be monitored in the PACU until transferred. Plan to remove stent in approx 1-2 weeks. I attest to the content of the Intraoperative Record and any orders documented therein. Any exceptions are noted below.
[2023-05-21] MEDS ORDERED: hydrALAZINE HCL 20 MG/ML VIAL IV STA (16:32)
[2023-05-21] MEDS ORDERED: hydrALAZINE HCL 20 MG/ML VIAL ONE (16:33)
--- NOTE | 2023-05-21 16:51 | Anesthesiology Progress Note ---
Date of Service May 21, 2023 Anesthesia Post Procedure Vital Signs Vital Signs: Temp Pulse Pulse Pulse Resp BP BP 05/21/23 16:15 21 L 59 L 21 185/93 H 05/21/23 16:05 59 L 12 193/95 H 05/21/23 15:57 37.5 C 61 16 195/103 H 05/21/23 14:13 37.1 C 69 20 171/89 H 05/21/23 11:16 36.5 C 56 L 16 158/88 H 05/21/23 10:35 05/21/23 07:28 85 05/21/23 07:17 36.6 C 67 16 151/90 H 05/21/23 03:00 36.7 C 90 18 133/73 05/21/23 00:00 71 05/20/23 22:00 36.9 C 68 18 158/90 H 05/20/23 19:00 37 C 69 20 145/76 H 05/20/23 17:13 82 Pulse Ox O2 Del Method O2 Flow Rate 05/21/23 16:15 609 H Oxymask 3 05/21/23 16:05 99 Oxymask 3 05/21/23 15:57 100 Oxymask 5 05/21/23 14:13 97 Room Air 05/21/23 11:16 96 Room Air 05/21/23 10:35 Room Air 05/21/23 07:28 05/21/23 07:17 93 Room Air 05/21/23 03:00 93 Room Air 05/21/23 00:00 05/20/23 22:00 93 Room Air 05/20/23 19:00 95 Room Air 05/20/23 17:13 Pain Intensity Abdomen: Pain Intensity: 0 Right Lower Back: Pain Intensity: 0 Transfer of Care Handoff Completed per policy Notes Mental Status: alert / awake / arousable Patient Amnestic to Procedure: Yes Nausea / Vomiting: adequately controlled Pain: adequately controlled Airway Patency, RR, SpO2: stable & adequate BP & HR: stable & adequate Hydration State: stable & adequate Anesthetic Complications: no major complications apparent and Pt Satisfied with anesthetic care
--- NOTE | 2023-05-21 17:20 | Hospitalist Progress Note ---
Date of Service May 21, 2023 Assessment & Plan (1) Right nephrolithiasis: Plan: Right 5 mm ureteral calculus and colic. Mild right hydronephrosis seen on CT scan. No evidence of UTI on urinalysis Renal function continues to be normal, however he is having ongoing pain and has not passed the stone despite max expulsive therapy Appreciate urology consultation and recommendations. Now s/p cystoscopy with right ureteral dilation, laser lithotripsy, stone basket extraction of stone, and right ureteral stent placement on 05/21 Continue IV fluids Increase morphine dose to 4 Mg IV every 3 hours Add on oxybutynin as needed for spasms Add on Flomax 0.4 Mg at bedtime Bisacodyl 10 Mg SC x 1 for ongoing constipation Continue Zofran as needed for nausea and vomiting which hopefully will improve with improvement in constipation and pain control Follow CBC and BMP in the morning (2) Constipation: Plan: No bowel movement since 05/18 which is very unusual for him Having increasing lower abdominal pain which may be related to constipation versus recent stone and stent procedure Continue docusate twice daily Add on bisacodyl 10 Mg SC x 1 (3) Hypoxia: Plan: Transient from narcotic administration. Resolved (4) Vomiting: Plan: Multiple episodes of nausea and vomiting on arrival. Due to severe ureteral colic pain. Has now returned postoperatively Continue Zofran as needed (5) Hydronephrosis: Plan: As above (6) Diabetes mellitus: Plan: Eventual advancement to ADA diet when tolerating a diet. Continue Lantus at reduced dose from home dose and NovoLog Check hemoglobin A1c in the morning Plan DVT prophylaxis-add on SCDs and add Lovenox in the morning given prolonged stay Disposition-continued stay, but hopeful for discharge home tomorrow if pain and nausea are better controlled Admission and Anticipated Discharge Date Admission Date: May 18, 2023 Subjective Patient seen after he returned from his ureteral stent placement and lithotripsy. He was having a lot of lower abdominal pain that he felt is related to constipation as he has not moved his bowels in 3 days which is very unusual for him. He is not having any back pain. He is voiding since the procedure with some blood. Denies chest pains or shortness of breath. He is having some nausea and vomiting postoperatively as well. Telemetry with normal sinus rhythm with rates in the 60s to 70s Physical Exam Constitutional: WD/WN, vitals as above Respiratory: normal respiratory effort, lungs clear to auscultation Cardiovascular: RRR, no murmur, no edema Gastrointestinal (Abdomen): Inspection/Auscultation: abdomen normal to inspection and normal bowel sounds; abdomen not distended Percussion/Palpation: + abdomen tender (Mild in RLQ and suprapubic region without guarding or rebound) and abdomen soft Psychiatric: A+Ox3, euthymic affect Results & Data Results & Data Vital Signs (Past 12 Hours) Vital Signs Temp Pulse Pulse Pulse Resp BP BP 05/21/23 17:05 36.4 C L 59 L 18 155/72 H 05/21/23 16:45 37.3 C 68 19 169/92 H 05/21/23 16:35 59 L 15 187/98 H 05/21/23 16:25 58 L 15 187/95 H 05/21/23 16:15 21 L 59 L 21 185/93 H 05/21/23 16:05 59 L 12 193/95 H 05/21/23 15:57 37.5 C 61 16 195/103 H 05/21/23 14:13 37.1 C 69 20 171/89 H 05/21/23 11:16 36.5 C 56 L 16 158/88 H 05/21/23 10:35 05/21/23 07:28 85 05/21/23 07:17 36.6 C 67 16 151/90 H Pulse Ox O2 Del Method O2 Flow Rate 05/21/23 17:05 96 Room Air 05/21/23 16:45 95 Room Air 05/21/23 16:35 96 Room Air 05/21/23 16:25 95 Oxymask 1 05/21/23 16:15 95 Oxymask 3 05/21/23 16:05 99 Oxymask 3 05/21/23 15:57 100 Oxymask 5 05/21/23 14:13 97 Room Air 05/21/23 11:16 96 Room Air 05/21/23 10:35 Room Air 05/21/23 07:28 05/21/23 07:17 93 Room Air Laboratory Results CBC, BMP, UA reviewed PG Care Time/CCT Total # of Minutes Spent Total Time Spent with Patient: Total time spent is greater than 50% in coordination of care (as documented) at patient's floor/unit and/or counseling patient: Coding Level of Care Code 59678 SUB INP/OBS CARE MIN Diagnoses Right nephrolithiasis N20.0 Constipation K59.00 Hypoxia R09.02 Vomiting R11.2 Nausea presence: with nausea Vomiting type: unspecified Hydronephrosis N13.2 Hydronephrosis type: with renal calculous obstruction Diabetes mellitus E11.9 (4) Vomiting Nausea presence: with nausea Vomiting type: unspecified Qualified Code(s): R11.2 - Nausea with vomiting, unspecified (5) Hydronephrosis Hydronephrosis type: with renal calculous obstruction Qualified Code(s): N13.2 - Hydronephrosis with renal and ureteral calculous obstruction
[2023-05-21] MEDS ORDERED: bisacodyL 10 MG SUPP PR PRN (17:24)
[2023-05-21] MEDS: ONDANSETRON INJ 2 MG/ML 2 ML VIAL IV PRN (17:27)
[2023-05-21] MEDS ORDERED: Nursing to Pharmacy Communication SCH (17:30)
[2023-05-21] MEDS: MoRPHine SULFATE 2 MG/ML CARP IV PRN (17:38)
[2023-05-21] MEDS ORDERED: MoRPHine SULFATE 2 MG/ML CARP IV STA (18:26)
[2023-05-21] MEDS ORDERED: TAMSULOSIN HCL 0.4 MG CAP PO SCH (21:00)
[2023-05-21] MEDS: oxyBUTYnin chloride 5 MG TAB PO PRN (21:22)
[2023-05-22] MEDS: ONDANSETRON INJ 2 MG/ML 2 ML VIAL IV PRN (00:13)
[2023-05-22] MEDS: MoRPHine SULFATE 2 MG/ML CARP IV PRN ×2 (00:13→03:16)
[2023-05-22] MEDS: LACTATED RINGER'S 1,000 ML IV SCH (04:42)
[2023-05-22 07:15] LABS: Basophils # (auto) 0.02 K/uL (0.00-0.20); Basophils % (auto) 0.2 %; Eosinophils # (auto) 0.01 K/uL (0.00-0.50); Eosinophils % (auto) 0.1 %; Hematocrit (blood only) 44.1 % (42.0-52.0); Hemoglobin 15.7 g/dl (14.0-18.0); Immature Granulocytes # (auto) 0.05 K/uL (0.01-0.20); Immature Granulocytes % (auto) 0.4 %; Lymphocytes # (auto) 1.54 K/uL (1.20-3.40); Lymphocytes % (auto) 11.9 %; Mean Corpuscular Hemoglobin 30.8 pg (25.0-34.0); Mean Corpuscular Hgb Conc 35.6 g/dL (32.0-36.0); Mean Corpuscular Volume 86.6 fL (80.0-100.0); Mean Platelet Volume 10.6 fL (9.4-12.4); Monocytes # (auto) 1.11 K/uL (0.11-0.59); Monocytes % (auto) 8.6 %; Neutrophils # (auto) 10.25 K/uL (1.40-6.50); Neutrophils % (auto) 78.8 %; Platelet Count 197 K/uL (130-400); RDW Coefficient of Variation 11.6 % (11.5-14.5); RDW Standard Deviation 36.9 fL (36.4-46.3); Red Blood Count 5.09 M/uL (4.70-6.10); White Blood Count 12.98 K/ul (4.8-10.8)
[2023-05-22 07:35] LABS: Albumin Globulin Ratio 1.5 (0.9-2); BUN Creatinine Ratio 19.4 (10-20); Bilirubin,Total 1.5 mg/dl (0.2-1.0); Calcium 8.3 mg/dl (8.6-10.3); Creatinine Clr Calc Pharmacy 109.3 ml/min; Est GFR (African American) 112.7 ml/min; Est GFR (Non-African American) 97.2 ml/min; Globulin 2.6 gm/dl (2.5-4.0); Magnesium 1.7 mg/dl (1.7-2.4); Potassium 3.6 mmol/L (3.5-5.1); Total Protein 6.6 gm/dl (6.0-8.3)
[2023-05-22 07:53] LABS: Estimated Average Glucose 146 mg/dl; Hemoglobin A1C 6.7 % (4.5-5.6)
--- NOTE | 2023-05-22 07:58 | Urology Progress Note ---
Date of Service May 22, 2023 Assessment & Plan (1) Calculus of proximal right ureter: Plan: - Pt POD#1 s/p Cystoscopy with Right URS-Laser Lithotripsy, Stone Basket Extraction, Right Stent Placement - He is subjectively feeling better today - Episode of nausea/vomiting, abdominal pain yesterday after procedure - Afebrile, lab work reviewed - creatinine 0.72, WBC 12.90 - Tolerating right ureteral stent with minimal bother - Okay to d/c from perspective when medically stable - Recommend d/c with course of Tamsulosin, prn Pyridium and prn pain medication for stent management - Discussed that stone was treated during procedure - Expected clinical course reviewed, all questions answered - Continue bowel regimen, supportive care per hospital medicine - Will arrange outpatient follow-up with our service for cysto/stent removal Admission and Anticipated Discharge Date Admission Date: May 18, 2023 Subjective Patient seen and examined at bedside this morning, chart reviewed Reports issues with abdominal pain and vomiting yesterday evening He thinks symptoms were related to constipation Feeling better this morning Denies flank pain Voiding spontaneously without difficulty, notes hematuria postprocedure Denies fever or chills Review of Systems Constitutional: as per Subjective / HPI Gastrointestinal: as per Subjective / HPI Genitourinary: + as per Subjective / HPI Physical Exam Constitutional: well developed and well nourished; no acute distress Respiratory: normal respiratory effort; no respiratory distress and no labored breathing Gastrointestinal (Abdomen): Inspection/Auscultation: abdomen normal to ins pection Musculoskeletal: Head/Neck/Chest: normocephalic Neurologic: moves all extremities and awake Psychiatric: Orientation: alert and oriented x 3 Results & Data Vital Signs (Past 12 Hours) Vital Signs Temp Pulse Pulse Resp BP Pulse Ox O2 Del Method 05/22/23 07:53 36.7 C 60 16 172/77 H 95 Room Air 05/22/23 07:06 73 05/22/23 03:55 36.6 C 75 20 181/78 H 96 Room Air 05/22/23 01:39 69 05/22/23 00:38 37.1 C 73 20 173/75 H 95 Room Air 05/21/23 20:00 36.3 C L 66 20 187/81 H 98 Room Air PG Care Time/CCT Total # of Minutes Spent Total Time Spent with Patient: Total time spent is greater than 50% in coordination of care (as documented) at patient's floor/unit and/or counseling patient: Coding Level of Care Code 02489 SUB INP/OBS CARE 06/28MIN Diagnoses Calculus of proximal right ureter N20.1
[2023-05-22] MEDS: oxyBUTYnin chloride 5 MG TAB PO PRN (08:06)
[2023-05-22] MEDS: ATORVASTATIN 10 MG TAB PO SCH (08:07)
[2023-05-22] MEDS: DOCUSATE SODIUM 100 MG CAP PO SCH (08:07)
[2023-05-22] MEDS: TIMOLOL MALEATE 0.5% OP SOLN 5 ML BTL OP SCH (08:08)
[2023-05-22] MEDS: INSULIN ASPART PER UNIT CHARGE SC SCH ×2 (08:54→13:08)
[2023-05-22] MEDS ORDERED: ENOXAPARIN INJ 40 MG/0.4 ML SYR SQ SCH (09:00)
[2023-05-22] MEDS: LANTUS PER UNIT CHARGE SQ SCH (09:20)
--- NOTE | 2023-05-22 14:04 | Discharge Summary ---
Discharge Summary Date of Service May 22, 2023 Notes For Next Care Provider Medication Changes From Visit Added oxybutynin 5mg po bid prn, pyridium 100mg po tid prn, oxycodone 5mg po q8h prn, tylenol 650mg po q6h prn, and Flomax 0.4mg po hs x 2 weeks Admission HPI Per Admitting Provider Colton is a 67 year old male with a PMH significant for DM, tremor, and chronic headaches who presented to the [facility] ED on 05/18 with complaints of right flank pain, abd pain, and nausea which began shortly after leaving work early this evening. He remained stable in the ED. Labs were significant for a leukocytosis of 12 with neutrophile predominance of 7.34, stable renal function, and UA without signs of infection. CT of the abd/pelvis wo con was read as "1. A 5 mm obstructing stone within the proximal right ureter resulting in mild right hydronephrosis. 2. Left-sided nephrolithiasis. 3. No bowel wall thickening or obstruction. 4. Normal appendix. 5. A small anterior bladder diverticulum. This could represent a urachal remnant. 6. Hepatic steatosis. 7. A few subcentimeter nodules within the lung bases measuring up to 3 mm.". Prior to admission the patient was given 1L NSS, 4 mg IV morphine, 15 mg IV toradol, 12.5 mg Compazine, 4 mg IV zofran, and 2 doses of 0.5 mg IV dilaudid. At the time of the admission the patient was sitting in bed in no acute distress with his sitting bedside, history was obtained from both. Prior to my arrival the patient's nurse placed him on 2L NC as his Spo2 fell to 88% on RA after receiving his last dose of Dilaudid. He states that he was in his normal state of health earlier today when leaving work. He was driving home when he started to develop acute onset of right flank/right lateral abd pain. He then had onset of diaphoresis and nausea. He pulled into the home depto parking lot but his symptoms persisted so he came to the ED. He denies a hx of previous kidney stones and denies recent urinary symptoms. He had multiple episodes of nausea and vomiting prior to and after ED arrival. His last episode appeared slightly red/purple. He states that he ate blueberries earlier in the day. His pain is currently well controlled. He is a full code and his would make medical decisions for him if he cannot make them himself. Please refer to Dr. Saeed's attestation for any changes to the treatment plan Principal Dx & Hospital Course #1 = Principal Diagnosis (1) Right nephrolithiasis: Right 5 mm ureteral calculus and colic. Mild right hydronephrosis seen on CT scan. No evidence of UTI on urinalysis Renal function continues to be normal, however he is having ongoing pain and has not passed the stone despite max expulsive therapy Appreciate urology consultation and recommendations. Now s/p cystoscopy with right ureteral dilation, laser lithotripsy, stone basket extraction of stone, and right ureteral stent placement on 05/21 Received IV fluids, pain control Improved, moving bowels, pain controlled -continue oxybutynin as needed for spasms, Flomax 0.4 Mg at bedtime x 2 weeks, pyridium prn, and oxycodone or tylenol prn (2) Constipation: No bowel movement since 05/18 which is very unusual for him-had 2 BMs on day of discharge and feeling better lower abdominal pain which may be related to constipation versus recent stone and stent procedure-now improved laxatives OTC prn at home (3) Hypoxia: Transient from narcotic administration. Resolved (4) Vomiting: Multiple episodes of nausea and vomiting on arrival. Due to severe ureteral colic pain. returned postoperatively but now resolved (5) Hydronephrosis: As above (6) Diabetes mellitus: ADA diet when tolerating a diet.Received Lantus at reduced dose from home dose due to not taking as much po -continue home doses of insulin on discharge hemoglobin A1c controlled at 6.7% Plan DVT prophylaxis-SCDs , Lovenox Disposition-dc to home Discharge Exam Constitutional WD/WN, vitals as above Respiratory normal respiratory effort, lungs clear to auscultation Cardiovascular RRR, no murmur, no edema Gastrointestinal (Abdomen) Inspection/Auscultation: abdomen normal to inspection and normal bowel sounds; a bdomen not distended Percussion/Palpation: + abdomen tender (Mild in RLQ and suprapubic region without guarding or rebound) and abdomen soft Psychiatric A+Ox3, euthymic affect Updated Medication List Medication Instructions Recorded Confirmed Type glucagon 1 mg solution for 1 mg subcut DIRECTED PRN 07/29/21 05/18/23 History injection (Glucagon Emergency Kit) hypoglycemia insulin glargine 100 unit/mL (3 45 unit subcut QPM 07/29/21 05/18/23 History mL) subcutaneous pen (Basaglar KwikPen U-100 Insulin) insulin regular human 100 unit/mL 1 sliding scale dose subcut 07/29/21 05/18/23 History (3 mL) subcutaneous pen (Novolin R USEASDIRECTD FlexPen) timolol maleate 0.5 % eye drops 1 drp OPB DAILY 07/29/21 05/18/23 History atorvastatin 10 mg tablet 10 mg PO DAILY 05/18/23 05/18/23 History acetaminophen 325 mg tablet 650 mg (2 x 325 mg) PO Q6H PRN 05/22/23 Rx pain #30 tabs oxybutynin chloride 5 mg tablet 5 mg PO BID PRN stent pain #14 tabs 05/22/23 Rx oxycodone 5 mg tablet 5 mg PO Q8H PRN moderate-severe 05/22/23 Rx pain #10 tabs phenazopyridine 100 mg tablet 100 mg PO TID PRN panful urination 05/22/23 Rx (Pyridium) and bladder spasm #10 tabs tamsulosin 0.4 mg capsule 0.4 mg PO HS #14 caps 05/22/23 Rx Hospital Stay Data Consultations 05/18/23 20:29 ED Decision to Admit Stat 05/18/23 21:11 Consult Urology Routine Procedures Performed Operation Date: 05/21/23 10:10 Actual Procedures p Cystoscopy Right Ureteroscopy, Retrograde Pyelogram, Ureteral Dilation,Laser Lithotripsy, Stone Basket Extraction, Right Stent Placement - Maynor Limon, Diagnostic Imagining Performed 05/18/23 16:14 CT Abdomen and Pelvis [CT abd pelvis wo con] Stat 05/21/23 13:00 FL retrograde includes kub Routine Pending Results Patient Have Any Pending Studies at Discharge: No Discharge Instructions Given to Patient (Per Discharging Provider) You should take the Flomax (tamsulosin) every night to help with any pain from the stent. On top of that, you can take oxybutynin twice a day as needed for stent pain and Pyridium as needed for burning with urination or bladder spasms. You can take tylenol for mild pain and oxycodone for moderate-severe pain. Make sure you continue moving your bowels at least once daily-you can take OTC laxatives or stool softeners as well as prune juice to help with this. Total Time Total Time Spent Total Time Spent (In Minutes): 35 min Coding Level of Care Code 06729 INP/OBS DISCH >30 MIN Diagnoses Right nephrolithiasis N20.0 Constipation K59.00 Hypoxia R09.02 Vomiting R11.2 Nausea presence: with nausea Vomiting type: unspecified Hydronephrosis N13.2 Hydronephrosis type: with renal calculous obstruction Diabetes mellitus E11.9
[2023-05-30 19:18] LABS: Component 2 DNR; Source R URETERAL
== END 2023-05-22 14:54 | disposition home or self-care (01) | DRG 661 ==
LOC: ED 15:46 → EDINP 20:45 → INTOOBSV 20:45 → SUATTDRO 20:45 → 2N 23:02